=== PATIENT | female | born 1965 | race Caucasian/White ===

== ENCOUNTER 2024-07-17 21:09 | Inpatient (IN) | payer OTHER, SELFPAY ==
[2024-07-17] VITALS (7 sets, daily range): BP systolic 138–181; BP diastolic 66–143; BMI 54.8; BMI 56.4
--- NOTE | 2024-07-17 14:04 | ED.GENMED ---
Addendum entered and electronically signed by Petey Case MD 07/17/24 19:57:
Patient doing well from an allergic reaction standpoint mostly complaining of leg pain at this time we will carefully give a dose of Dilaudid which she has tolerated well in the past
Addendum entered and electronically signed by Petey Case MD 07/17/24 19:42:
During patient's Zosyn patient started feeling a throat tightness and a scratchiness in her throat. Became somewhat agitated. Vital signs remained stable. No new rash. However was treated like an allergic reaction. Was given a racemic epi
inhaled. Benadryl and Pepcid. Patient states she has significant allergic issues with steroids and will be held at this time. Also would like to avoid IM epi given patient's complicated history. I remained in the room throughout this initial
event and she clearly improved clinically.
Original Note:
ED Provider Triage
<Evan Parker PA-C - Last Filed: 07/17/24 14:09>
-
Patient seen by provider in Triage?: Seen in Triage
Attestation: A medical screening examination has been initiated by a qualified medical provider. Based on the assessment performed at this time, it has been determined that an emergent medical condition may exist and the patient has been informed
that further medical evaluation and possible additional diagnostic testing may be needed.
HPI: 58-year-old female presenting to the emergency department for evaluation of right lower extremity edema and a wound that has been present for about 3 to 4 weeks. Gradually worsening. Has not sought any other medical care. Over the last few
days patient also notes that she now has a erythematous rash on both hands and left lower extremity. No pain associated with this. Denies any history of similar. Does note she takes torsemide for edema but did not take this today knowing she was
coming to the ER. Labs and ultrasound ordered.
GENERAL: Alert , in no apparent distress
EYE: No visual abnormalities.
NECK: Trachea midline
ENT: No visible abnormalities.
LUNGS: No acute respiratory distress
NEUROLOGICAL: Alert and oriented
SKIN: Skin intact. No visible changes.
MUSCULOSKELETAL: Moving extremities normally
PSYCH: Normal and appropriate interaction.
This is a medical evaluation conducted in person to initiate diagnostic evaluation and provide initial therapeutics. Please see further documentation by the treating clinician.
History of Present Illness
<Evan Parker PA-C - Last Filed: 07/17/24 14:09>
General
Chief Complaint: Skin Problem
Time Seen by Provider: 07/17/24 18:31
<Petey Case MD - Last Filed: 07/17/24 19:10>
General
Source: patient and family
Exam Limitations: none
History of Present Illness
History of Present Illness:
58-year-old female presents with a cellulitis drainage malodorous in nature pain to the right lower extremity. Progressive over weeks. No fever. Has had ongoing swelling to this right leg. However it is more swollen now than typically
Past History
<Petey Case MD - Last Filed: 07/17/24 19:10>
Past History
ED Past Surgical History: Cholecystectomy, Gynecological and Orthopedic
Review of Systems
<Petey Case MD - Last Filed: 07/17/24 19:10>
Review of Systems
All Other Systems: Not applicable
Constitutional: Denies fever
Phy Exam
<Petey Case MD - Last Filed: 07/17/24 19:10>
Physical Exam
Physical Exam:
GENERAL: Alert and oriented in no apparent distress
EYE: Orbits normal.
NECK: Supple
CARDIAC: Regular rate and rhythm without any obvious murmurs.
LUNGS: Clear breath sounds,normal
ABDOMEN: Soft, without focal tenderness or distention. Elevated BMI
NEUROLOGICAL: Alert and oriented , grossly non-focal
SKIN: Warm and dry, discrete macular papular rash mostly upper extremities but some to the anterior lower extremities
MUSCULOSKELETAL: Significant edema swelling with a large superficial draining malodorous wound to the right lower extremity. Surrounding erythema
PSYCH: Normal and appropriate interaction.
Course
<Evan Parker PA-C - Last Filed: 07/17/24 14:09>
Orders/Labs/Results
Orders:
Orders
07/17/24 14:06
Periph Venous Lwr Ext Rt US [US Periph Venous LOWER Ext RT] Urgent
Comment:
Reason For Exam: edema, wounds
07/17/24 14:29
Complete Blood Count/With Diff Urgent
Comprehensive Metabolic Panel Urgent
Lactic Acid Q4H
Comment: CANCEL 2nd LACTIC ACID IF 1st LACTIC ACID IS LESS THAN 2
NT-proBNP Urgent
07/17/24 18:46
IV Insert/Care/Rem.- Treatment PRN
Piperacillin/Tazo 4.5 Gram [Zosyn] 4.5 gram in 100 ml IV NOW
Vancomycin [Vancocin] 2,000 mg 0.9% Sodium Chloride 500 ml [Nss] 500 ml IV NOW
Abnormal Lab Results
07/17/24
14:29
WBC 12.4 H 10^3/uL
(4.8-10.8)
MCV 78.2 L fL
(81.0-99.0)
MCH 23.3 L pg
(27.0-31.0)
MCHC 29.9 L g/dL
(33.0-37.0)
RDW 17.2 H %
(11.5-14.5)
Abs Immat Gran (auto) 0.1 H 10^3/uL
(0-0.05)
Absolute Neuts (auto) 9.4 H 10^3/uL
(1.4-6.5)
Absolute Monos (auto) 0.7 H 10^3/uL
(0.1-0.6)
Neutrophils % 75.7 H %
(42.2-75.2)
Lymphocytes % 14.5 L %
(20.5-51.1)
Chloride 96 L mmol/L
(98-107)
Carbon Dioxide 33 H mmol/L
(22-30)
BUN 19 H mg/dl
(7-17)
Glucose 124 H mg/dl
(70-99)
Alkaline Phosphatase 132 H U/L
(38-126)
07/17/24 14:29
07/17/24 14:29
Vital Signs
Initial and Last Documented VS:
Initial Vital Signs
Temp Pulse Resp BP Pulse Ox
97.8 F 94 16 181/101 98
07/17/24 14:03 07/17/24 14:03 07/17/24 14:03 07/17/24 14:03 07/17/24 14:03
Last Documented Vital Signs
Temp Pulse Resp BP Pulse Ox
97.8 F 94 16 181/101 98
07/17/24 14:03 07/17/24 14:03 07/17/24 14:03 07/17/24 14:03 07/17/24 14:03
<Petey Case MD - Last Filed: 07/17/24 19:10>
Orders/Labs/Results
Orders:
Orders
07/17/24 14:06
Periph Venous Lwr Ext Rt US [US Periph Venous LOWER Ext RT] Urgent
Comment:
Reason For Exam: edema, wounds
07/17/24 14:29
Complete Blood Count/With Diff Urgent
Comprehensive Metabolic Panel Urgent
Lactic Acid Q4H
Comment: CANCEL 2nd LACTIC ACID IF 1st LACTIC ACID IS LESS THAN 2
NT-proBNP Urgent
07/17/24 18:46
IV Insert/Care/Rem.- Treatment PRN
Piperacillin/Tazo 4.5 Gram [Zosyn] 4.5 gram in 100 ml IV NOW
Vancomycin [Vancocin] 2,000 mg 0.9% Sodium Chloride 500 ml [Nss] 500 ml IV NOW
Abnormal Lab Results
07/17/24
14:29
WBC 12.4 H 10^3/uL
(4.8-10.8)
MCV 78.2 L fL
(81.0-99.0)
MCH 23.3 L pg
(27.0-31.0)
MCHC 29.9 L g/dL
(33.0-37.0)
RDW 17.2 H %
(11.5-14.5)
Abs Immat Gran (auto) 0.1 H 10^3/uL
(0-0.05)
Absolute Neuts (auto) 9.4 H 10^3/uL
(1.4-6.5)
Absolute Monos (auto) 0.7 H 10^3/uL
(0.1-0.6)
Neutrophils % 75.7 H %
(42.2-75.2)
Lymphocytes % 14.5 L %
(20.5-51.1)
Chloride 96 L mmol/L
(98-107)
Carbon Dioxide 33 H mmol/L
(22-30)
BUN 19 H mg/dl
(7-17)
Glucose 124 H mg/dl
(70-99)
Alkaline Phosphatase 132 H U/L
(38-126)
07/17/24 14:29
07/17/24 14:29
Vital Signs
Initial and Last Documented VS:
Initial Vital Signs
Temp Pulse Resp BP Pulse Ox
97.8 F 94 16 181/101 98
07/17/24 14:03 07/17/24 14:03 07/17/24 14:03 07/17/24 14:03 07/17/24 14:03
Last Documented Vital Signs
Temp Pulse Resp BP Pulse Ox
97.8 F 94 16 181/101 98
07/17/24 14:03 07/17/24 14:03 07/17/24 14:03 07/17/24 14:03 07/17/24 14:03
<Petey Case MD - Last Filed: 07/17/24 19:10>
MDM/Problems Addressed
Differential Diagnosis Includes:
Patient with a significant cellulitis with drainage malodorous to the right lower extremity. Warrants IV antibiotics. In addition she has a secondary maculopapular rash most to the upper extremities but some in the lower extremities. Unknown
cause at this time
<Petey Case MD - Last Filed: 07/17/24 19:10>
*Radiology
Radiology exam reviewed: radiology read reviewed (Negative ultrasound)
*Pulse Oximetry
Patient hypoxic: no
*Critical Care Note
Total Time (30-74mins, 75-104mins- exclusive of procedures): Not Applicable
ED Attending Note
<Evan Parker PA-C - Last Filed: 07/17/24 14:09>
-
Portions of this chart may have been created with voice recognition software.� Occasional wrong word or��sound alike� substitutions may have occurred due to the inherent limitations of voice recognition software.
Discharge Plan
Interventions
Interventions:
*Risk Screen - Suicide Last Done: 07/17/24 14:03
*General Assessment Last Done: 07/17/24 14:03
*Neglect/Abuse Screening Last Done: 07/17/24 14:03
ED- Fall Risk Assessment Last Done: 07/17/24 18:54
*ED COVID-19 Vaccine History Last Done: 07/17/24 18:54
ED-Skin Assessment Last Done: 07/17/24 18:54
Discharge Date and Time
Print Language: [place]
[2024-07-17 14:38] LABS: % Basophils 0.4 % (0-2); % Eosinophils 3.3 % (0-6); % Immature Granulocytes 0.4 % (0-0.5); % Lymphocytes 14.5 % (20.5-51.1); % Monocytes 5.7 % (1.7-9.3); % Neutrophils 75.7 % (42.2-75.2); Absolute Basophils 0.1 10^3/uL (0-0.2); Absolute Eosinophils 0.4 10^3/uL (0-0.7); Absolute Immature Granulocytes 0.1 10^3/uL (0-0.05); Absolute Lymphocytes 1.8 10^3/uL (1.2-3.4); Absolute Monocytes 0.7 10^3/uL (0.1-0.6); Absolute Neutrophils 9.4 10^3/uL (1.4-6.5); Hematocrit 41.2 % (37.0-47.0); Hemoglobin 12.3 g/dL (12.0-16.0); Mean Corp Hgb Conc. 29.9 g/dL (33.0-37.0); Mean Corpuscular Hgb 23.3 pg (27.0-31.0); Mean Corpuscular Volume 78.2 fL (81.0-99.0); Mean Platelet Volume 8.9 fL (7.4-10.4); Nucleated Red Blood Cells % 0.2 %; Platelet Count 310 10^3/uL (130-400); Red Blood Cell Count 5.27 10^6/uL (4.20-5.40); Red Cell Dist. Width 17.2 % (11.5-14.5); White Blood Cell Count 12.4 10^3/uL (4.8-10.8)
[2024-07-17 14:56] LABS: ALT (SGPT) 26 U/L (0-35); AST (SGOT) 25 U/L (14-36); Alkaline Phosphatase 132 U/L (38-126); Blood Urea Nitrogen 19 mg/dl (7-17); Calcium 9.6 mg/dl (8.4-10.2); Carbon Dioxide 33 mmol/L (22-30); Chloride 96 mmol/L (98-107); Glucose 124 mg/dl (70-99); Potassium 4.3 mmol/L (3.5-5.1); Sodium 141 mmol/L (135-145); Total Bilirubin 0.4 mg/dl (0.2-1.3); Total Protein 7.7 g/dl (6.3-8.2); eGFR > 60.00
[2024-07-17 14:57] LABS: Lactic Acid 1.5 mmol/L (0.7-2.0)
[2024-07-17 15:04] LABS: NT-proBNP 44.9 pg/ml
[2024-07-17] MEDS: ZOSYN 100 IV (19:07)
[2024-07-17] MEDS: BENADRYL 50 MG IV (19:26)
[2024-07-17] MEDS: VAPONEFRIN NEBS 0.5 ML INH (19:26)
--- NOTE | 2024-07-17 19:29 | EDRN ---
At approx. 1910 this RN was called into room 9. The patients daughter stated 'I think my Mother is having an allergic reaction to the antibiotic.' This RN disconnected the antibiotic and called for Dr. Case to the bedside. The patient complains of
throat tightness and that her voice is now hoarse. Verbal orders from Dr. Case to give Benadryl 50mg IV, pepcid 40mg IV, decadron 8mg IV and racemic epi. via neb. Dr. Case stayed at the stretcher side with this RN. The patient informed Dr. Case
and this RN that she is allergic to steriods but she is not sure what the name of the medication was. At 20:25 The patient stated 'I am starting to feel better.' Verbal order from Dr. Case to hold decadron. Primary RN, Lesley, was notified that
the patient was having an allergic reaction. The patient continues to state 'I am feeling a little better.'
--- NOTE | 2024-07-17 20:18 | HPS.HSE ---
Family Physician
-
Family Physician: * NONE
Chief Complaint
-
Right Calf Wound
History of Present Illness
Patient is a 58 y/o female who presents with worsening right calf wound. Patient developed a posterior right calf wound about three weeks ago which has gotten progressive worse. She notes the wound is now foul smelling, and she has been
experiencing increasing pain the leg. She has been using over the counter wound products without improvement. She reports about 3 days ago she developed a rash on her bilateral hands and forearms. She denies any recorded fevers.
Medical History
Past Medical History
Past Medical History: Reports Other
Additional Past Medical History:
Chronic Lower Extremity Edema
Morbid Obesity
Asthma
Past Surgical History: Reports Other
Additional Past Surgical History:
Cervical Fusion
Lumbar Discectomy
Breast Reduction
Cholecystectomy
Social History
Tobacco: Former Smoker (Quit in 2005)
Family History
Family History: Not pertinent
Allergies / Home Medications
Allergies reflects when Allergies were last updated in [employer].
Home Medications with original date entered in [employer]
Allergy/Medication List:
Allergies
Allergy/AdvReac Type Severity Reaction Status Date / Time
piperacillin [From Zosyn] Allergy Severe Throat Verified 07/17/24 20:48
Tightness
tazobactam [From Zosyn] Allergy Severe Throat Verified 07/17/24 20:48
Tightness
levofloxacin [From Levaquin] Allergy Intermediate Nausea / Verified 07/17/24 14:02
Vomiting
tetanus toxoid, adsorbed Allergy Unknown Verified 07/17/24 19:32
Home Medications
fexofenadine 60 mg-pseudoephedrine ER 120 mg tablet,ext.release,12 hr ([place]-D 12 Hour) 1 tab PO Q12H PRN allergies 07/17/24
torsemide 20 mg tablet 20 mg PO DAILY 07/17/24
Review of Systems
-
A 12 point ROS was completed and negative except as noted: Yes
Constitutional: Denies Fever
Respiratory: Denies Cough or Trouble Breathing
Cardiac: Denies Chest Pain or Palpitations
Abdomen/GI: Reports Nausea
Physical Exam
Vital Signs
Vital Signs
Temp Pulse Resp BP Pulse Ox
97.8 F 99 28 157/66 94
07/17/24 14:03 07/17/24 19:10 07/17/24 19:10 07/17/24 19:10 07/17/24 19:10
Physical Exam
General: Comfortable and Pain
HEENT: Anicteric and Moist mucous membranes
Respiratory: Clear and Non Labored Respirations
Cardiac: S1/S2 and Regular Rhythm
GI: Soft, Non Tender and Other (Protuberant)
Rectal: Deferred by Provider
Musculoskeletal: No Clubbing, No Cyanosis and Edema, Right Lower Extremity
Skin: Warm, Dry, Rash (Petechial non-blanchable rash bilateral hands and forearms) and Other (Large maloderous wound across posterior right calf with surrounding erythema; Several small wounds on the toe; Small wound notes on left ankle which do not
appear appear infected)
Neuro: Awake, Alert, Oriented and Nonfocal/grossly intact
Psych: Calm
Laboratory Results
-
07/17/24 14:29
07/17/24 14:29
Laboratory Results
Lactic Acid 1.5 mmol/L (0.7-2.0) 07/17/24 14:29
Lactic Acid Cancelled 07/17/24 14:29
Total Bilirubin 0.4 mg/dl (0.2-1.3) 07/17/24 14:29
AST 25 U/L (14-36) 07/17/24 14:29
ALT 26 U/L (0-35) 07/17/24 14:29
Alkaline Phosphatase 132 U/L (38-126) H 07/17/24 14:29
Data Reviewed
-
Ultrasound: Report Reviewed by me
Lab Data: Labs Reviewed by me
Impression/Plan
-
Sepsis secondary to Infected Right Posterior Calf Wound
-Consult Wound Care
-Consult Infectious Disease
-Check blood cultures
-Continue Vancomycin
Bilateral Upper Extremity Rash, possibly small vessel vasculitis related to infection
-Check ESR and CRP
Chronic Lower Extremity Edema
-Continue Torsemide
Morbid Obestiy due to Excess Calories
-Affects all aspects of care
DVT proph: Lovenox
Code Status: Full Code
[2024-07-17] MEDS: DILAUDID 0.5 MG IV (20:29)
[2024-07-17] MEDS: VANCOCIN 540 MG IV (20:36)
--- NOTE | 2024-07-17 21:16 | W.PN.UPDATE ---
Update Note
Progress Note Update
Patient seen in conjunction with SAMREEN. I agree with the findings on history and physical as well as the assessment and plan.
Patient is a 58-year-old female with past medical history significant for dependent edema and morbid obesity who presents to the emergency department with a pain erythema and exudate of the left lower extremity. She started applying cream to her
ulceration that started a few weeks ago. After applying the cream he appeared to have developed spreading of the redness and tenderness in lower extremity. She also reported having a rash that started about 2 days ago in her upper extremities
bilaterally. She denies fevers or chills. She denies any further medications.
In the emergency department the patient was afebrile hemodynamically stable and in no acute distress. She did have leukocytosis to 12,000. Hemoglobin platelets are within normal limits. Chemistries were essentially within normal limits except for
a bicarb of 33. Ultrasound is negative for lower extremity DVT.
She received Zosyn in the emergency department. She reported prior history of reaction to Augmentin but not allergies. However she developed throat tightness and conjunction with the Zosyn which was discontinued.
Assessment and plan
purulent cellulitis w/o abscess. No history of PAD and no diabetes. The rash is suggestive of systemic response to the local infection.
-Blood cultures
-IV vancomycin for now
-Check CRP
-ID consultation
-Wound care
DVT PPX - lovenox sq
Code status - Full Code
[2024-07-17 21:20] LABS: Erythrocyte Sed Rate 63 mm/hour (0-20)
[2024-07-17] MEDS: DILAUDID 0.25 MG IV (22:50)
--- NOTE | 2024-07-17 23:30 | PTCARENOTE ---
Patient arrived to floor via stretcher accompanied by ED PCT, with assistance patient able to transfer self from stretcher to bed with noted difficulty secondary to pain in legs and back pain. Nursing assessment completed and as documented, see
worklist. IV Vanco infusing via R AC PIV, flushed and patent. Patient with large wound to posterior RLE and above heel, multiple scattered scabs/abrasions on BLLE and feet. Noted x2 large scabs on L lateral foot. Rash noted on BLLE and BLUE, marked
with skin marker. Rash is red/pink, flat and not currently itchy. Patient refused heparin, education provided. PRN dilaudid administered per order, see MAR. Instructed on use of call harrison and within reach, VSS, care ongoing.
[2024-07-18] MEDS: DILAUDID 0.25 MG IV ×2 (01:58→12:26)
[2024-07-18 03:30] VITALS: BP 139/81
[2024-07-18 06:00] VITALS: BMI 56.4
[2024-07-18 07:00] VITALS: BP 123/92
--- NOTE | 2024-07-18 07:48 | PHA.VAN.IN ---
Assessment
- Assessment
Renal Function: Unknown baseline
Renal Function may be Overestimated due to: Obesity. BMI = 56.4
Maximum Temperature: 98.4
Minimum Temperature: 97.8
AUC Dosing Plan
- Dosing Variables
Dosing Weight (kg): 139.8
Dosing CrCl (ml/min): 90
Vd coefficient (L/kg): 0.4
- Empiric Dosing
Initial / Loading Dose: Vanc 2000mg given 07/17 at 2035
Maintenance Regimen: Vanc 1000mg IV Q12H
Estimated AUC (mcg*h/mL): 470
Estimated Peak (mcg*h/mL): 29.17
Estimated Trough (mcg/ml): 12.22
Estimated Half Life (H): 8.7
- Monitoring
No levels ordered at this time: Consider levels after 07/19 1800 dose
Pharmacokinetics Vancomycin I
- -
Patient Age: 58
Patient Sex: Female
Vancomycin Day #: 1
Indication: Skin And Soft Tissue
Requesting Provider: Uli
Pertinent Antimicrobial Allergies:
Zosyn = throat tightness; Levaquin = nausea,vomiting
Height / Weight:
Height 5 ft 2 in
Actual Weight 139.752 kg
IBW in k.1
Adjusted BW in k
Pertinent Past Medical History: Morbid obesity. BMI = 56.4
- Vital Signs / Lab Results
Temp Pulse Resp BP Pulse Ox
98.4 F 109 17 139/81 95
07/18/24 03:30 07/18/24 03:30 07/18/24 03:30 07/18/24 03:30 07/18/24 03:30
Lab Results - Hematology
07/17/24
14:29
WBC 12.4 H
Lab Results - Chemistry
07/17/24
14:29
BUN 19 H
Creatinine 0.9
Albumin 4.0
07/17/24 07/17/24
14 14:29
Lactic Acid 1.5 Cancelled
[2024-07-18] MEDS: DEMADEX 20 MG PO (08:54)
[2024-07-18] MEDS: VANCOCIN 200 IV ×2 (08:55→18:25)
[2024-07-18 09:59] LABS: Hematocrit 38.8 % (37.0-47.0); Hemoglobin 11.6 g/dL (12.0-16.0); Mean Corp Hgb Conc. 29.9 g/dL (33.0-37.0); Mean Corpuscular Hgb 23.9 pg (27.0-31.0); Mean Corpuscular Volume 79.8 fL (81.0-99.0); Mean Platelet Volume 9.3 fL (7.4-10.4); Platelet Count 300 10^3/uL (130-400); Red Blood Cell Count 4.86 10^6/uL (4.20-5.40); Red Cell Dist. Width 16.9 % (11.5-14.5)
[2024-07-18 10:30] LABS: Blood Urea Nitrogen 14 mg/dl (7-17); Calcium 8.8 mg/dl (8.4-10.2); Carbon Dioxide 34 mmol/L (22-30); Chloride 96 mmol/L (98-107); Estimated Creatinine Clearance 101 ml/min; Glucose 125 mg/dl (70-99); Potassium 4.4 mmol/L (3.5-5.1); Sodium 142 mmol/L (135-145); eGFR > 60.00
[2024-07-18 11:00] VITALS: BP 135/73
[2024-07-18 11:39] LABS: Glycohemoglobin (HgbA1c) 6.7 % (4.0-5.6)
--- NOTE | 2024-07-18 13:53 | CON.ID ---
Consultation
-
Date/Time Consultation Requested: July 17, 20243
Date/Time Consultation Performed: July 18, 2024 1400
Requesting Provider: Dr. Noris Luna
Performing Provider: Dr. Angela Hammonds
Reason for Consultation: RLE cellulitis
Chief Complaint / Past History
Chief Complaint
Worsening right calf wounds
History of Present Illness
58-year-old female with class III obesity BMI 56, lymphedema, who presented to the hospital on July 17 due to foul-smelling right calf wounds. She reports she has chronic pruritic skin conditions mostly on bilateral ankles for which she sees
adult education professional. She applies topical steroid cream. She then developed pruritic lesion on her calf for which she was scratching. Eventually a wound developed about 4 weeks ago and progressed down her leg. She also developed black scabs on her toes
which opened and she has a wound on the fifth toe. She noted foul-smelling odor emanating from the wound and therefore she came to the hospital. Wounds are very painful. She also developed a rash on all 4 limbs approximately 3 days ago. The rash
is not pruritic. No new medicines recently. She thinks she may have allergies to flower mites. She had similar rash in the past which spontaneously resolved. No fevers or chills. In ED she was given Zosyn then developed throat tightness. She is
currently on vancomycin. Patient reports she tolerated cephalexin. Report history of MRSA soft tissue abscess in the past.
Past History
Additional Past Medical History:
Asthma
Class III obesity BMI 56
Lymphedema
BLE dermatitis
hx MRSA abscess on face
Cholecystectomy
Breast reduction
Lumber discectomy
Cervical spine fusion
Allergy History:
piperacillin [From Zosyn] Allergy (Severe, Verified 07/17/24 20:48)
Throat Tightness
tazobactam [From Zosyn] Allergy (Severe, Verified 07/17/24 20:48)
Throat Tightness
levofloxacin [From Levaquin] Allergy (Intermediate, Verified 07/17/24 14:02)
Nausea / Vomiting
tetanus toxoid, adsorbed Allergy (Verified 07/17/24 19:32)
Unknown
Medications Reviewed: Yes
Current Antibiotics:
Vancomycin IV
Social History
Tobacco: Former Smoker
Alcohol: None
Drug: None
Living: With Family (son)
Family History
Family History: Not Pertinent
Review of Systems
Review of Systems
General: Negative Fever, Chills or Change in Appetite
HEENT: Negative Sinus Problems, Headache or Pharyngitis
Cardiovascular: Negative Chest Pain or Dyspnea
Respiratory: Negative Dyspnea or Cough
Gasteroenterology: Negative Nausea, Vomiting or Diarrhea
Genital / Urological: Negative Dysuria or Flank Pain
Endocrine: Negative Weakness
Skin / Hair / Nails: Rash
Neurological: Negative Headache or Dizziness
All systems: All other systems were reviewed and were negative
Vital Signs
Temp Pulse Resp BP Pulse Ox
98.9 F 109 16 135/73 91
07/18/24 11:00 07/18/24 11:00 07/18/24 11:00 07/18/24 11:00 07/18/24 11:00
Physical Exam
Physical Exam
Constitutional: No Acute Distress, Comfortable and Obese
Eyes: No Conjunctival Hemorrhage and Sclera Anicteric
Cardiovascular: Regular Rate and S1/S2
Pulmonary: Clear
Gastrointestinal: Soft, Non Tender, Non Distended and Normal Bowel Sounds
Genito-Urinary: Negative CVA Tenderness
Extremities: Edema (RLE>LLE) and Erythema (RLE + erythema.)
Skin: Other (Left ankle + thick lichenified skin with excoriations. Diffuse maculopapular rash on bilateral thighs, and UE. )
Wound: Other (Wounds down posterior right leg calf to ankle, foul smelling odor, yellow fibrinous exudate. 5th toe dark with wound. Second toe + black scab. Also few scabs on right toes. )
Neurological: AO x 3
Lab / Diagnostic Study Results
07/18/24 08:37
07/18/24 08:37
Abs Immat Gran (auto) 0.1 10^3/uL (0-0.05) H 07/17/24 14:29
Absolute Neuts (auto) 9.4 10^3/uL (1.4-6.5) H 07/17/24 14:29
Absolute Lymphs (auto) 1.8 10^3/uL (1.2-3.4) 07/17/24 14:
Absolute Monos (auto) 0.7 10^3/uL (0.1-0.6) H 07/17/24 14:
Absolute Basos (auto) 0.1 10^3/uL (0-0.2) 07/17/24 14:
Immature Gran % 0.4 % (0-0.5) 07/17/24 14:29
Neutrophils % 75.7 % (42.2-75.2) H 07/17/24 14:
Lymphocytes % 14.5 % (20.5-51.1) L 07/17/24 14:
Monocytes % 5.7 % (1.7-9.3) 07/17/24 14:
Eosinophils % 3.3 % (0-6) 07/17/24 14:
Basophils % 0.4 % (0-2) 07/17/24 14:29
ESR 63 mm/hour (0-20) H 07/17/24 14:
Lactic Acid 1.5 mmol/L (0.7-2.0) 07/17/24 14:
Lactic Acid Cancelled 07/17/24 14:
C-Reactive Protein 33.00 mg/L (0.0-10.00) H 07/17/24 14:29
Microbiology Results
Micro:
07/18/24 03:15 MRSA Screen - Pending
Nose
07/17/24 21:03 Blood Culture - Pending
Blood/Venous
07/17/24 21:03 Blood Culture - Pending
Blood/Venous
RLE venous duplex: No evidence of deep venous thrombosis in the right lower extremity as described above.
Assessment / Plan
# Extensive right posterior leg wounds, foul smelling, with cellulitis
# Leukocytosis
- Ordered arterial US studies
- Continue Vancomycin pending MRSA screen
- Add cefepime. Pt tolerated cephalosporins in the past.
- Wound Consult to see on Saturday.
- In the meantime, put in wound care orders.
# Acute BLE and BUE rash
- unclear inciting source. Pt thinks from a flower basket.
- Supportive care.
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
Asthma
Class III obesity BMI 56
Lymphedema
BLE dermatitis
hx MRSA abscess on face
Cholecystectomy
Breast reduction
Lumber discectomy
Cervical spine fusion
[2024-07-18 15:00] VITALS: BP 149/80
--- NOTE | 2024-07-18 15:22 | W.PN.HOSP.TC ---
Today's Communication/Plan
-
AB
ID eval
WC
Assessment / Plan
Assessment / Plan
58 y/o female with cellulitis worsening right calf wound. Patient stated that this started about 3 weeks ago she had skin thickening on the left dorsal foot for which she was given a cream by senior clinical data coordinator she started putting it on the other leg
to. She noticed a blood blister on dorsal toe on the right foot and then again also developed wounds on the back. Patient stated that she has been using a cleansing agent for the wound called dermal wound cleanser which has benzethonium chloride
as active ingredient. Patient stated that she cannot see the back of her calf really well. She also had family issues with her autistic son and also she is take care of her sister at this point therefore did not pay much attention. 2 days ago she
also started having a rash on her arm. No new medicines or any antibiotics. No fevers. She noted foul smell to the wounds.
On examination awake and alert
Multiple petechial hemorrhages on bilateral upper extremities lower extremities I did not see much on the trunk or the torso.
Skin thickening dorsal foot on the left
Wound with foul smell posteriorly starting just above the ankle all the way up on till slightly below the popliteal area. She also has other ulcers and small skin hemorrhages on the dorsal foot. Discharge noted from the leg/ulcers.
# Infected right posterior wound
Blood culture sent
Vancomycin started
ID and wound care consulted
Local wound care
Wound care consult
Adaptic and gauze for now
# Bilateral upper extremity rash
Vasculitis? Contact dermatitis versus reaction to the cleansing agent
Patient stated that she has had a rash like this once in the past and it went away.
Check Vasculitis panel
# Hemoglobin A1c 6.7-patient has diabetes. Diabetic education consult, dietary consult. Accu-Cheks. Pt aware.
# Chronic lower extremity edema-continue torsemide
# History of lumbar discectomies and cervical fusion
# Asthma-NOS stable
# MGUS per chart
# Sleep apnea-CPAP intolerant uses oxygen at night
# Ambulatory dysfunction
# Morbid obesity with a BMI of 56- Affects all aspects of health, need to loose weight. Discussed re weight loss.
# Ex-smoker
# DVT prophylaxis-Lovenox
# Full code
D/W Dietitian
Part of this note was created using voice recognition system. Occasional wrong word or��sound alike� substitutions may have inadvertently occurred due to the inherent limitations of voice recognition software. If noted kindly bring it to my
attention for correction.
Anticipated Discharge: > 48 hours
Subjective/Interval History
-
Date of Service: July 18, 2024
Objective Data
-
Labs:
Laboratory Results
07/18/24
08:37
WBC 13.0 H
Hgb 11.6 L
Hct 38.8
Plt Count 300
Sodium 142
Potassium 4.4
Chloride 96 L
Carbon Dioxide 34 H
BUN 14
Creatinine 0.8
Glucose 125 H
Calcium 8.8
Vital Signs:
Vital Signs
Temp Pulse Resp BP Pulse Ox
98.9 F 109 16 135/73 91
07/18/24 11:00 07/18/24 11:00 07/18/24 11:00 07/18/24 11:00 07/18/24 11:00
I&O
07/17/24 07/18/24 07/19/24
06:59 06:59 06:59
Output Total 600 / 600
Balance -600 / -600
[2024-07-18] MEDS: STERILE WATER FOR INJECTION 10 ML IV (16:32)
[2024-07-18] MEDS: MAXIPIME 1000 MG IV (16:36)
[2024-07-18 17:32] LABS: Glucose - Point of Care 123 mg/dl (70-99)
[2024-07-18 20:17] VITALS: BP 141/72
[2024-07-18] MEDS: DESENEX/MITRAZOL/ZEASORB 1 APPLIC TOPICAL (20:54)
[2024-07-18 21:03] LABS: Glucose - Point of Care 171 mg/dl (70-99)
[2024-07-18 23:48] VITALS: BP 157/90
[2024-07-19] MEDS: STERILE WATER FOR INJECTION 10 ML IV ×4 (01:09→17:41)
[2024-07-19] MEDS: MAXIPIME 1000 MG IV ×4 (01:10→17:41)
[2024-07-19 03:35] VITALS: BP 124/65
[2024-07-19] MEDS: DAKIN'S SOLUTION 0.125% 1/4 STRENGTH 1 ML TOPICAL (05:53)
[2024-07-19] MEDS: VANCOCIN 200 IV ×2 (05:55→18:06)
[2024-07-19 06:42] LABS: ALT (SGPT) 23 U/L (0-35); AST (SGOT) 29 U/L (14-36); Albumin 3.6 g/dl (3.5-5.0); Alkaline Phosphatase 124 U/L (38-126); Blood Urea Nitrogen 14 mg/dl (7-17); Carbon Dioxide 35 mmol/L (22-30); Chloride 93 mmol/L (98-107); Estimated Creatinine Clearance 101 ml/min; Glucose 107 mg/dl (70-99); Potassium 3.7 mmol/L (3.5-5.1); Sodium 139 mmol/L (135-145); Total Bilirubin 0.4 mg/dl (0.2-1.3); eGFR > 60.00
[2024-07-19 07:00] VITALS: BP 130/77
[2024-07-19 08:08] LABS: Glucose - Point of Care 127 mg/dl (70-99)
--- NOTE | 2024-07-19 08:34 | PHA.VAN.FU ---
Vancomycin Assessment / Plan
- Assessment
Renal Function: Stable
In the past 24 hrs, patient has been: Afebrile
Concomitant Antimicrobials: Cefepime
- Dosing Plan
Continue: Vanc 1000mg IV Q12H
- Monitoring Plan
Peak Level: 07/19 at 2030
Trough Level: 07/20 at 0530
- Follow Up
Pharmacy will continue to follow.
Vancomycin Follow UP
- -
Patient Age: 58
Patient Sex: Female
Vancomycin Day #: 2
Indication: Skin And Soft Tissue
Requesting Provider: Uli
Pertinent Antimicrobial Allergies:
Zosyn = throat tightness; Levaquin = nausea,vomiting
Height / Weight:
Height 5 ft 2 in
Actual Weight 139.752 kg
IBW in k.1
Adjusted BW in k
Pertinent Past Medical History: Morbid obesity. BMI = 56.4
- Vital Signs / Lab Results
Temp Pulse Resp BP Pulse Ox
97.9 F 83 16 130/77 96
07/19/24 07:00 07/19/24 07:00 07/19/24 07:00 07/19/24 07:00 07/19/24 07:00
Lab Results - Hematology
07/17/24 07/18/24
14:29 08:37
WBC 12.4 H 13.0 H
Lab Results - Chemistry
07/17/24 07/18/24 07/19/24
14:29 08:37 04:33
BUN 19 H 14 14
Creatinine 0.9 0.8 0.8
Estimated Creat Clear 101 101
Albumin 4.0 3.6
07/17/24 07/17/24
14:29 14:29
Lactic Acid 1.5 Cancelled
Microbiology Results
07/17/24 21:03 Blood Culture - Preliminary
Blood/Venous No Growth in 24 hours- Final report to follow
07/17/24 21:03 Blood Culture - Preliminary
Blood/Venous No Growth in 24 hours- Final report to follow
[2024-07-19] MEDS: DEMADEX 20 MG PO (08:56)
[2024-07-19] MEDS: DESENEX/MITRAZOL/ZEASORB 1 APPLIC TOPICAL ×2 (08:58→20:36)
[2024-07-19] MEDS: DAKIN'S SOLUTION 0.125% 1/4 STRENGTH 473 ML TOPICAL ×2 (08:59→20:36)
[2024-07-19] MEDS: TYLENOL 650 MG PO (09:14)
[2024-07-19 11:00] VITALS: BP 133/62
[2024-07-19 11:52] LABS: Glucose - Point of Care 124 mg/dl (70-99)
[2024-07-19] MEDS: ROXICODONE 5 MG PO ×2 (13:25→20:35)
[2024-07-19] MEDS: MIRALAX 17 GRAMS PO (13:26)
[2024-07-19] MEDS: SENOKOT 17.2 MG PO ×2 (13:26→20:35)
--- NOTE | 2024-07-19 15:04 | W.PN.ID1 ---
Date of Service
Date of Service: July 19, 2024
Today's Communication
Continue Vancomycin, cefepime.
Assessment / Plan
# Extensive right posterior leg surface wounds, foul smelling, with purulent cellulitis
# Leukocytosis
# MRSA nasal screen positive
- arterial US studies ordered
- Continue Vancomycin (d3) and cefepime (d2)
- Wounds no longer foul-smelling.
- Wound Consult to see tomorrow.
- In the meantime, wash wounds with saline, then Dakins, then apply adaptic (in place of current silver alginate), abd pad, wrap with gauze.
# Acute BLE and BUE rash improving
- unclear inciting source.
- Supportive care.
# Conditions SUSTAINABLE LANDSCAPE ARCHITECT
Asthma
Class III obesity BMI 56
Lymphedema
BLE dermatitis
hx MRSA abscess on face
Cholecystectomy
Breast reduction
Lumber discectomy
Cervical spine fusion
Chief Complaint
-: Cellulitis and Other (Leg wounds)
Subjective / Review of Systems
Wound pain during dressing change.
Vital Signs / Physical Exam
Vital Signs
Vital Signs
Temp Pulse Resp BP Pulse Ox
98.1 F 89 18 133/62 96
07/19/24 11:00 07/19/24 11:00 07/19/24 11:00 07/19/24 11:00 07/19/24 14:37
Physical Exam
Constitutional: No Acute Distress
Gastrointestinal: Soft, Non Tender and Non Distended
Extremities: Edema (RLE 2+) and Erythema (RLE juni-wound erythema decreased)
Skin: Rash (Maculopapular rash BUE and thighs decreased.)
Wound: Other (RLE, calf to ankle surface wound no longer malodorous, + moderate yellow-light green tinge drainage on gauze. Bilateral toes and foot with few scattered dry black scabs)
Neurological: AO x 3
Objective Data
Lab Data
Lab Results
07/18/24 08:37
07/19/24 04:33
ESR 63 mm/hour (0-20) H 07/17/24 14:29
Estimated Creat Clear 101 ml/min 07/19/24 04:33
Lactic Acid 1.5 mmol/L (0.7-2.0) 07/17/24 14:29
Lactic Acid Cancelled 07/17/24 14:29
Total Bilirubin 0.4 mg/dl (0.2-1.3) 07/19/24 04:33
AST 29 U/L (14-36) 07/19/24 04:33
ALT 23 U/L (0-35) 07/19/24 04:33
Alkaline Phosphatase 124 U/L (38-126) 07/19/24 04:33
C-Reactive Protein 71.70 mg/L (0.0-10.00) H 07/19/24 04:33
Most recent labs reviewed.
Micro Results:
07/18/24 03:15 MRSA Screen - Final
Nose Staph aureus MRSA
07/17/24 21:03 Blood Culture - Preliminary
Blood/Venous No Growth in 24 hours- Final report to follow
07/17/24 21:03 Blood Culture - Preliminary
Blood/Venous No Growth in 24 hours- Final report to follow
RLE venous duplex: No evidence of deep venous thrombosis in the right lower extremity as described above.
--- NOTE | 2024-07-19 15:31 | W.PN.HOSP.TC ---
Today's Communication/Plan
-
IV AB
WC
OOB to chair
Assessment / Plan
Assessment / Plan
58 y/o female with cellulitis worsening right calf wound. Patient stated that this started about 3 weeks ago she had skin thickening on the left dorsal foot for which she was given a cream by radiation protection specialist she started putting it on the other leg
to. She noticed a blood blister on dorsal toe on the right foot and then again also developed wounds on the back. Patient stated that she has been using a cleansing agent for the wound called dermal wound cleanser which has benzethonium chloride
as active ingredient. Patient stated that she cannot see the back of her calf really well. She also had family issues with her autistic son and also she is take care of her sister at this point therefore did not pay much attention. 2 days ago she
also started having a rash on her arm. No new medicines or any antibiotics. No fevers. She noted foul smell to the wounds.
On examination awake and alert
Multiple petechial hemorrhages on bilateral upper extremities lower extremities I did not see much on the trunk or the torso. petechiae improving.
Skin thickening dorsal foot on the left
Wound with foul smell posteriorly starting just above the ankle all the way up on till slightly below the popliteal area. She also has other ulcers and small skin hemorrhages on the dorsal foot. Discharge noted from the leg/ulcers.
# Infected right posterior wound
Blood culture sent
Vancomycin started
ID and wound care consulted
Local wound care
Wound care consult
10/10 Siri, Ladarius and Abd pad and Sisi for now
# Bilateral upper extremity rash
Vasculitis? Contact dermatitis versus reaction to the cleansing agent
Patient stated that she has had a rash like this once in the past and it went away.
Check Vasculitis panel
# Hemoglobin A1c 6.7-patient has diabetes. Diabetic education consult, dietary consult. Accu-Cheks. Pt aware.
# Chronic lower extremity edema-continue torsemide
# History of lumbar discectomies and cervical fusion
# Asthma-NOS stable
# MGUS per chart
# Sleep apnea-CPAP intolerant uses oxygen at night
# Ambulatory dysfunction
# Morbid obesity with a BMI of 56- Affects all aspects of health, need to loose weight. Discussed re weight loss.
# Ex-smoker
# DVT prophylaxis-Lovenox
# Full code
D/W RN
Part of this note was created using voice recognition system. Occasional wrong word or��sound alike� substitutions may have inadvertently occurred due to the inherent limitations of voice recognition software. If noted kindly bring it to my
attention for correction.
Anticipated Discharge: > 48 hours
Subjective/Interval History
-
Date of Service: July 19, 2024
Objective Data
-
Labs:
Laboratory Results
07/19/24
04:33
Sodium 139
Potassium 3.7
Chloride 93 L
Carbon Dioxide 35 H
BUN 14
Creatinine 0.8
Glucose 107 H
Calcium 9.0
Total Bilirubin 0.4
AST 29
ALT 23
Alkaline Phosphatase 124
Vital Signs:
Vital Signs
Temp Pulse Resp BP Pulse Ox
98.1 F 89 18 133/62 96
07/19/24 11:00 07/19/24 11:00 07/19/24 11:00 07/19/24 11:00 07/19/24 14:37
I&O
07/18/24 07/19/24 07/20/24
06:59 06:59 06:59
Intake Total 400 / 400
Output Total 600 / 600 1650 / 1650
Balance -600 / -600 -1250 / -1250
--- NOTE | 2024-07-19 16:02 | CM ---
Met patient. She lives in [facility] but her sister lived in [place]. Here sister . SHe has been living at sister's home to prepare house to sell.
She has a son with autism who is now with his sister in her home in [place], [place].
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 She has no DME, no vna no snf history.
She would like SANDRO EVANS RN at discharge for wound care.
She will stay in [place] for now.
PLAN home with CRISTINA JO
[2024-07-19 16:55] VITALS: BP 133/77
--- NOTE | 2024-07-19 17:00 | PTCARENOTE ---
Rec'd pt from 3west est 1700 in her bed. Pt pleasant, AAO. No c/o of pain to r lower leg at this time. Previous assessment unchanged. Will cont to monitor.
[2024-07-19] MEDS: FLUSH (NSS) 2 FLUSH IV (17:44)
[2024-07-19 19:19] VITALS: BP 160/89
[2024-07-19 20:30] LABS: Glucose - Point of Care 117 mg/dl (70-99)
[2024-07-19 21:04] LABS: Vancomycin Peak 20.2 ug/ml (18-26)
--- NOTE | 2024-07-19 23:14 | PTCARENOTE ---
Patient refused Heparin injection; patient stated that prior to admission she had an episode of large amount of blood in toilet after urinating; patient wants to follow up with her OBGYN before taking an anticoagulant.
[2024-07-19 23:45] VITALS: BP 141/74
[2024-07-19 23:46] LABS: Complement C3 178 mg/dl (88-165)
[2024-07-20] MEDS: MAXIPIME 1000 MG IV ×3 (00:22→11:41)
[2024-07-20] MEDS: STERILE WATER FOR INJECTION 10 ML IV ×3 (00:22→11:41)
[2024-07-20] MEDS: ROXICODONE 5 MG PO ×2 (03:38→10:06)
[2024-07-20 03:47] VITALS: BP 126/70
[2024-07-20 05:32] LABS: Urine Albumin Trace (Neg - Trace); Urine Bilirubin Negative (Negative); Urine Character Slightly Cloudy (Clear); Urine Color Yellow; Urine Glucose Negative (Negative); Urine Ketone Negative (Negative); Urine Leukocyte Trace (Negative); Urine Nitrite Negative (Negative); Urine Occult Blood 4+ (Negative); Urine Urobilinogen Negative (Neg - 1+)
[2024-07-20 06:00] VITALS: BMI 55.3
[2024-07-20 06:44] LABS: Urine Amorphous Seen; Urine Mucus Many; Urine Squamous Cell >30 /LPF (Few)
[2024-07-20 06:45] LABS: Urine Bacteria Many (Negative); Urine Red Blood Cell >100 /HPF (0-2)
[2024-07-20 07:15] LABS: Vancomycin Trough 9.6 ug/ml (5-20)
[2024-07-20 07:20] VITALS: BP 132/67
[2024-07-20] MEDS: VANCOCIN 200 IV (07:22)
[2024-07-20 07:25] LABS: % Basophils 0.5 % (0-2); % Eosinophils 5.6 % (0-6); % Immature Granulocytes 0.6 % (0-0.5); % Lymphocytes 11.5 % (20.5-51.1); % Monocytes 5.4 % (1.7-9.3); % Neutrophils 76.4 % (42.2-75.2); Absolute Basophils 0.1 10^3/uL (0-0.2); Absolute Eosinophils 0.7 10^3/uL (0-0.7); Absolute Immature Granulocytes 0.1 10^3/uL (0-0.05); Absolute Lymphocytes 1.4 10^3/uL (1.2-3.4); Absolute Monocytes 0.7 10^3/uL (0.1-0.6); Absolute Neutrophils 9.3 10^3/uL (1.4-6.5); Hematocrit 41.8 % (37.0-47.0); Hemoglobin 12.5 g/dL (12.0-16.0); Mean Corp Hgb Conc. 29.9 g/dL (33.0-37.0); Mean Corpuscular Hgb 23.8 pg (27.0-31.0); Mean Corpuscular Volume 79.6 fL (81.0-99.0); Nucleated Red Blood Cells % 0 %; Red Blood Cell Count 5.25 10^6/uL (4.20-5.40); Red Cell Dist. Width 17.3 % (11.5-14.5); White Blood Cell Count 12.2 10^3/uL (4.8-10.8)
[2024-07-20 07:44] LABS: Glucose - Point of Care 164 mg/dl (70-99)
[2024-07-20] MEDS: DESENEX/MITRAZOL/ZEASORB 1 APPLIC TOPICAL ×2 (07:54→20:47)
[2024-07-20] MEDS: DAKIN'S SOLUTION 0.125% 1/4 STRENGTH 473 ML TOPICAL ×2 (07:54→20:47)
[2024-07-20] MEDS: MIRALAX PO (07:55)
[2024-07-20] MEDS: SENOKOT PO (07:55)
[2024-07-20] MEDS: DEMADEX 20 MG PO (07:55)
[2024-07-20 08:26] LABS: Mean Platelet Volume 10.2 fL (7.4-10.4); Platelet Count 287 10^3/uL (130-400)
--- NOTE | 2024-07-20 08:36 | PHA.VAN.FU ---
Vancomycin Assessment / Plan
- Assessment
Renal Function: Stable
WBC's are: Stable
In the past 24 hrs, patient has been: Afebrile
Concomitant Antimicrobials: cefepime
- Assessment - Therapeutic Drug Monitoring
Extrapolated Cmax (mcg/mL): 22.8
Peak level was drawn: Appropriately (drawn ~1.5H after end of previous infusion)
Extrapolated Cmin (mcg/mL): 9.5
Trough Drawn: Appropriately
Levels were drawn: At steady state (drawn after 3rd maintenance dose; however, may still have accumulation with BMI)
Calculated AUC (mcg*h/mL): 366
Calculated ke: 0.08
Calculated half life (H): 8.7
Calculated Vd (L): 68 (~0.5 L/kg)
Calculated Vanc CL (ml/min): 91
- Dosing Plan
Adjust Regimen to: Vanc 1250mg Q12H
New Regimen Predicts: AUC (458), Peak (29.7), Trough (11.4)
Patient may not fully be at steady state (may be prolonged to reach equilibrium between tissues and serum due to BMI)
- Monitoring Plan
No level(s) ordered at this time: consider levels in next few days
Monitoring Comments: Patient may still have additional accumulation
- Follow Up
Pharmacy will continue to follow.
Vancomycin Follow UP
- -
Patient Age: 58
Patient Sex: Female
Vancomycin Day #: 3
Indication: Skin And Soft Tissue
Requesting Provider: Uli / Dr. Hammonds
Pertinent Antimicrobial Allergies:
piperacillin/tazobactam - throat tightness; tolerated cephalexin
levofloxacin - N/V
Height / Weight:
Height 5 ft 2 in
Actual Weight 137.127 kg
IBW in k.1
Adjusted BW in k
Pertinent Past Medical History: BMI ~55
- Vital Signs / Lab Results
Temp Pulse Resp BP Pulse Ox
98.4 F 87 18 132/67 98
07/20/24 07:20 07/20/24 07:20 07/20/24 07:20 07/20/24 07:20 07/20/24 07:20
Lab Results - Hematology
07/17/24 07/18/24 07/20/24
14:29 08:37 05:56
WBC 12.4 H 13.0 H 12.2 H
Lab Results - Chemistry
07/17/24 07/18/24 07/19/24
14:29 08:37 04:33
BUN 19 H 14 14
Creatinine 0.9 0.8 0.8
Estimated Creat Clear 101 101
Albumin 4.0 3.6
07/20/24
05:56
BUN Cancelled
Creatinine Cancelled
Estimated Creat Clear Cancelled
Albumin
07/17/24 07/17/24
14:29 14:29
Lactic Acid 1.5 Cancelled
Lab Results - Urine
07/20/24
03:36
Urine Nitrite Negative
Ur Leukocyte Esterase Trace A
Urine WBC
Ur Squamous Epith Cells >30
Urine Bacteria Many A
Microbiology Results
07/17/24 21:03 Blood Culture - Preliminary
Blood/Venous No Growth in 48 hours- Final report to follow
07/17/24 21:03 Blood Culture - Preliminary
Blood/Venous No Growth in 48 hours- Final report to follow
07/18/24 03:15 MRSA Screen - Final
Nose Staph aureus MRSA
Therapeutic Drug Monitoring
Vancomycin Peak 20.2 ug/ml (18-26) 07/19/24 20:38
Vancomycin Trough 9.6 ug/ml (5-20) 07/20/24 05:56
--- NOTE | 2024-07-20 08:59 | W.PN.UPDATE ---
Update Note
Progress Note Update
I saw and evaluated the patient. I reviewed the resident�s note and agree with findings and plan as documented in the resident�s note.
No new complaints. Denies chest pain or shortness of breath.
Gen: NAD, AAOx3.
Eyes: EOMI, PERRLA, no scleral icterus.
Neck: supple.
CV: Tachycardic, regular rhythm, +S1/S2, no m/r/g.
Resp: CTAB, no rales, wheezes, or rhonchi.
Abd: +BS, soft, NT, ND
Skin: Macular rash most notable on the dorsum of the hands. C/D/I dressing RLE
Neuro: CN 2-12 intact, non-focal.
Psych: Normal mood and affect.
Infected RLE wound:
-cont Cefepime as per ID
-BCx NGTD
-wound care
Macular rash:
-DDx includes vasculitis, contact dermatitis
-vasculitis labs pending (HARVINDER, ANCA, RF, anti-CCP)
-c/s rheum
Hematuria:
-As per patient this has been going on 6 months
-If the patient has vasculitis this could be the cause
-Hb normal
Other problems:
Morbid obesity due to excess calories
Chronic lower extremity edema: continue torsemide
h/o lumbar discectomies and cervical fusion
Asthma, not in acute exac
MGUS per chart
JAMES: CPAP intolerant, uses oxygen at night
Ambulatory dysfunction
Total time spent on today's encounter was 50 minutes which included time spent in counseling the patient/family regarding diagnosis and treatment plan as listed above, goals of care, and symptom management. Case was discussed with nursing staff,
specialists, and care coordinators/case management. All labs and imaging personally reviewed by me. Remainder the time spent in detailed review of previous records, lab data, imaging, and other medical provider documentation.
[2024-07-20 10:12] LABS: Blood Urea Nitrogen 17 mg/dl (7-17); Calcium 8.9 mg/dl (8.4-10.2); Carbon Dioxide 36 mmol/L (22-30); Chloride 90 mmol/L (98-107); Estimated Creatinine Clearance 100 ml/min; Glucose 116 mg/dl (70-99); Sodium 137 mmol/L (135-145); eGFR > 60.00
--- NOTE | 2024-07-20 10:43 | W.PN.HOSP.TC ---
Today's Communication/Plan
-
Rheumatology consult
arterial doppler ultrasound of right leg
follow vasculitis pannel
Assessment / Plan
Assessment / Plan
IMPRESSION
58 y/o female with cellulitis of right calf wound.
Multiple petechial hemorrhages on bilateral upper extremities lower extremities
Skin thickening dorsal foot on the left
ASSESSMENT AND PLAN
# Infected right posterior wound
NOSE SWAB POSITIVE FOR MRSA
ID and wound care consulted
- arterial US studies ordered
- Continue Vancomycin (d3) and cefepime (d2)
Local wound care
10/10 Dakin, Adaptic and Abd pad and Sisi for now
# Bilateral upper extremity rash
Vasculitis? Contact dermatitis versus reaction to the cleansing agent
Patient stated that she has had a rash like this once in the past and it went away.
checked Vasculitis panel-positive for increased c3 and c4
has hematuria, eczema, chronic venous insufficiency
rheumatology consult
# Hemoglobin A1c 6.7-patient has diabetes. Diabetic education consult, dietary consult. Accu-Cheks. Pt aware.
# Chronic lower extremity edema-continue torsemide
# History of lumbar discectomies and cervical fusion
# Asthma-NOS stable
# MGUS per chart
# Sleep apnea-CPAP intolerant uses oxygen at night
# Ambulatory dysfunction
# Morbid obesity with a BMI of 56- Affects all aspects of health, need to loose weight. Discussed re weight loss.
Ex-smoker
# DVT prophylaxis-Lovenox
# Full code
Anticipated Discharge: 24 - 48 hours
Subjective/Interval History
-
Date of Service: July 20, 2024
no active issues
Objective Data
-
Labs:
Laboratory Results
07/20/24 07/20/24
05:56 09:18
WBC 12.2 H
Hgb 12.5
Hct 41.8
Plt Count 287
Sodium Cancelled 137
Potassium Cancelled 4.0
Chloride Cancelled 90 L
Carbon Dioxide Cancelled 36 H
BUN Cancelled 17
Creatinine Cancelled 0.8
Glucose Cancelled 116 H
Calcium Cancelled 8.9
Vital Signs:
Vital Signs
Temp Pulse Resp BP Pulse Ox
98.4 F 87 18 132/67 98
07/20/24 07:20 07/20/24 07:20 07/20/24 07:20 07/20/24 07:20 07/20/24 07:20
I&O
07/19/24 07/20/24 07/21/24
06:59 06:59 06:59
Intake Total 400 / 400 480 / 480
Output Total 1650 / 1650 500 / 500
Balance -1250 / -1250 -20 / -20
Review of Systems
-
All other systems: Reviewed and negative
Physical Exam
-
General: Well Developed, Well Nourished, No Apparent Distress, Comfortable and Obese
HEENT: Normocephalic and Atraumatic
Respiratory: Clear to Auscultation
Cardiac: Regular Rhythm and S1/S2
GI: Soft, Nontender, Nondistended and Normal Bowel Sounds
Skin: Warm and Rash (petechiae on hands bilaterally, scabed rash on both feet, redness of right leg)
Neuro: Awake, Alert and Oriented
Hematologic / Lymphatic: No Lymphadenopathy
Psych: Calm
[2024-07-20 11:05] VITALS: BP 124/65
--- NOTE | 2024-07-20 11:14 | WOUNDNOTE ---
R CALF (POSTERIOR)(with photo flash)
--- NOTE | 2024-07-20 11:17 | WOUNDNOTE ---
FEET (R MEDIAL, L DORSAL)
--- NOTE | 2024-07-20 11:17 | WOUNDNOTE ---
[facility] RN note: Patient admitted with sepsis, RLE cellulitis. Patient living temporality in her sister's house with her autistic son. Her home is in [place]. She last saw her regulatory associate in December (Dr. Sánchez Kang).
See H&P for complete history.
PMH: asthma, obesity, venous stasis RLE, cervical fusion, lumbar discectomies, breast reduction, cholecystectomy, former smoker, chronic LE edema, sleep apnea (CPAP), ambulation dysfunction.
Wound Location and type/assessment: Patient admitted with: R posterior calf deep dermal suspect venous stasis ulcer with diffuse erythema RLE (improved as per Dr. Hammonds). +2 RLE edema. +R pedal pulse heard via portable Doppler. L ankle eczema
appearing skin. Dry scabs on R foot. Rash improved on legs and arms. Mild MASD sacral crease. RLE venous Doppler negative for DVT.
Appetite: good.
Pressure redistribution devices in place: Centrella Max air bed. She can turn self in bed.
Plan: Patient seen with Dr. Hammonds. Current wound care appropriate. Dr. Hammonds approved R knee high Fabian with light compression as tolerated and moisture cream to arms/leg dry rash like skin as tolerated. Heels off bed with pillow. Air chair cushion
given. Will update CHAYA Campos. Instructed patient to follow up at [facility].
Care plan to be updated and will follow as needed.
Note to case management requested for discharge: VN to assist with wound care.
Recommend follow up at wound care center upon discharge.
[2024-07-20 11:22] LABS: Glucose - Point of Care 126 mg/dl (70-99)
[2024-07-20] MEDS: DILAUDID 0.25 MG IV ×2 (11:40→20:45)
[2024-07-20 11:48] LABS: Rheumatoid Agglutinin Less Than 10 IU (<10 IU)
--- NOTE | 2024-07-20 12:18 | W.PN.UPDATE ---
Update Note
Progress Note Update
Patient has petechial rash,hematuria and elevated c3 and c4
Rheumatology consult appreciated
we spoke with , He advised labs including hep-b, HARVINDER, Hiv,immunoglobulins,urine protein to creatinine ratio,SPEP and a repeat urinalysis
Dr. Ybarra advised outpatient visit once the patient gets treated for cellulitis
--- NOTE | 2024-07-20 14:23 | W.PN.ID1 ---
Date of Service
Date of Service: July 20, 2024
Today's Communication
Continue Vanco.
DC cefepime
Assessment / Plan
# Extensive right posterior leg surface wounds, foul smelling, with purulent cellulitis
# Leukocytosis improving
# MRSA nasal screen positive
- wound and cellulitis improving
- arterial US studies ordered
- Continue Vancomycin (d4)
- dc cefepime (d3)
- Appreciate Wound Care recs.
# Acute BLE and BUE rash improving
- unclear inciting source.
- Supportive care.
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
Asthma
Class III obesity BMI 56
Lymphedema
BLE dermatitis
hx MRSA abscess on face
Cholecystectomy
Breast reduction
Lumber discectomy
Cervical spine fusion
Chief Complaint
-: Cellulitis and Other (Leg wounds)
Subjective / Review of Systems
Rash fading.
Right leg dressing too tight last night - taken off.
Vital Signs / Physical Exam
Vital Signs
Vital Signs
Temp Pulse Resp BP Pulse Ox
99.1 F 100 18 124/65 90
07/20/24 11:05 07/20/24 11:05 07/20/24 11:05 07/20/24 11:05 07/20/24 11:05
Physical Exam
Constitutional: No Acute Distress
Extremities: Edema (RLE 3+) and Erythema (RLE erythema decreased)
Skin: Rash (Maculopapular rash now localized to dorsum of hands)
Wound: Other (Right posterior leg with surface wound, light yellow fibrin, juni-wound erythema decreasing. Several black scabs on distal foot. )
Neurological: AO x 3
Objective Data
Lab Data
Lab Results
07/20/24 05:56
07/20/24 09:18
ESR 63 mm/hour (0-20) H 07/17/24 14:29
Estimated Creat Clear 100 ml/min 07/20/24 09:18
Lactic Acid 1.5 mmol/L (0.7-2.0) 07/17/24 14:29
Lactic Acid Cancelled 07/17/24 14:29
Total Bilirubin 0.4 mg/dl (0.2-1.3) 07/19/24 04:33
AST 29 U/L (14-36) 07/19/24 04:33
ALT 23 U/L (0-35) 07/19/24 04:33
Alkaline Phosphatase 124 U/L (38-126) 07/19/24 04:33
C-Reactive Protein 71.70 mg/L (0.0-10.00) H 07/19/24 04:33
Most recent labs reviewed.
Micro Results:
07/17/24 21:03 Blood Culture - Preliminary
Blood/Venous No Growth in 48 hours- Final report to follow
07/17/24 21:03 Blood Culture - Preliminary
Blood/Venous No Growth in 48 hours- Final report to follow
07/18/24 03:15 MRSA Screen - Final
Nose Staph aureus MRSA
RLE venous duplex: No evidence of deep venous thrombosis in the right lower extremity as described above.
Care Review
Plan reviewed with: Nurse (Rhoda Pierre)
--- NOTE | 2024-07-20 14:48 | PN.DE ---
Diabetes Education
- -
07/20/2024: Diabetes Education Consult
58 year old female admitted with RLE Cellulitis and infected posterior wound. Met with pt at bedside for glucose monitor instructions. Pt is newly Dx T2DM with current A1C of 6.7%. Provided with Contour Next Gen glucose meter, instructions with good
return demonstration, result 159 mg/dl 1hr after lunch were noted. Discussed testing pattern and expected results and information marked in the take home booklet. Discussed importance of intense life style modification and encouraged pt to enroll in
outpatient Diabetes Education. Pt reports she is not from this area but will look into Diabetes classes when she returns home in [place].
Pt will need RX for test strips and lancets for the Contour Next Gen glucose meter testing once/day at discharge. All sent to pt's pharmacy
[2024-07-20 15:25] VITALS: BP 124/69
[2024-07-20 15:26] LABS: Hepatitis B Surface Antigen Negative (Negative)
--- NOTE | 2024-07-20 15:29 | CM ---
Met with patient at bedside.
Discussed [facility] - referral placed in [facility]-liaison notified.
PCP: Haris Gresham [phone]
Patient will be staying in [place] at her sister's home (recently passed)
Discussed recommendation by [facility] regarding [facility].
States would be able to uber if necessary.
PLAN: sister's home with visiting nurse.
[2024-07-20 15:34] LABS: HIV Combo Negative (Negative)
--- NOTE | 2024-07-20 16:11 | VNURNOTE ---
[facility] liaison met with patient at bedside. patient screened, she admits she has not seen PCP in 2-3 years. She stated she saw Dr Haris Hyatt at [place] in [place]. Explained that patient has to be current with PCP in order for [facility] to provide
services. Liaison called PCP and spoke with Bella at PCP's. Inquired if would be willing to sign VN /wound care orders. Waiting for call back. CM and [facility] Intake aware.
[2024-07-20 16:33] LABS: Glucose - Point of Care 131 mg/dl (70-99)
[2024-07-20 16:50] LABS: Urine Albumin Trace (Neg - Trace); Urine Bilirubin Negative (Negative); Urine Character Slightly Cloudy (Clear); Urine Color Yellow; Urine Glucose Negative (Negative); Urine Ketone Negative (Negative); Urine Leukocyte Negative (Negative); Urine Nitrite Negative (Negative); Urine Occult Blood 4+ (Negative); Urine Specific Gravity 1.015 (<1.030); Urine Urobilinogen Negative (Neg - 1+)
[2024-07-20 17:12] LABS: Protein/creatinine Ratio 0.5; Urine Protein 32 mg/dl
[2024-07-20 17:18] LABS: Urine Squamous Cell >30 /LPF (Few)
[2024-07-20 17:19] LABS: Urine Bacteria Few (Negative); Urine White Cell 0-2 /HPF (0-5)
[2024-07-20] MEDS: VANCOCIN 275 MG IV (17:24)
[2024-07-20 19:52] VITALS: BP 133/77
[2024-07-20] MEDS: SENOKOT 17.2 MG PO (20:44)
[2024-07-20 21:59] LABS: Glucose - Point of Care 130 mg/dl (70-99)
[2024-07-20 22:10] LABS: ANA, IgG Reflex to HEp-2 None Detected (None Detected)
[2024-07-20 23:34] VITALS: BP 146/70
[2024-07-21 01:04] LABS: Myeloperoxidase Antibody 0 AU/mL (0-19); Serine Protease-3, IgG 0 AU/mL (0-19)
[2024-07-21 01:35] LABS: CCP Antibody IgG/IgA 4 Units (0-19)
[2024-07-21 03:40] VITALS: BP 131/57
[2024-07-21 05:36] VITALS: BMI 54.9
[2024-07-21] MEDS: VANCOCIN 275 MG IV (06:10)
[2024-07-21] MEDS: DILAUDID 0.25 MG IV ×2 (06:15→21:17)
--- NOTE | 2024-07-21 07:03 | W.PN.HOSP.TC ---
Addendum entered and electronically signed by Carlin Verdugo MD, Resident 07/21/24 15:45:
Clarification regarding sepsis,
Sepsis POA,due to RLE cellulitis--- likely resolved
Addendum entered and electronically signed by Carlin Verdugo MD, Resident 07/21/24 15:23:
In clarification to my note!
The cellulitis of the right leg is most likely secondary to diabetes and chronic lymphedema
Addendum entered and electronically signed by Asif Remy MD 07/21/24 11:50:
I saw and evaluated the patient. I reviewed the resident�s note and agree with findings and plan as documented in the resident�s note.
Patient states she feels cold (but a fan is blowing on her). No other new complaints.
Gen: NAD, AAOx3.
Eyes: EOMI, PERRLA, no scleral icterus.
Neck: supple.
CV: RRR, +S1/S2, no m/r/g.
Resp: CTAB, no rales, wheezes, or rhonchi.
Abd: +BS, soft, NT, ND
Skin: C/D/I dressing RLE
Neuro: CN 2-12 intact, non-focal.
Psych: Normal mood and affect.
Infected RLE wound:
-was on Cefepime, now transitioned to Doxy through 07/26/24 as per ID
-BCx NGTD
-wound care
Macular rash:
-DDx includes vasculitis, contact dermatitis
-vasculitis labs in process. So far RF, anti-CCP, HARVINDER, ANCAs, HIV NEG, rest pending
-follow up with rheum after d/c
Hematuria:
-As per patient this has been going on 6 months
-If the patient has vasculitis this could be the cause
-Hb normal
Other problems:
Morbid obesity due to excess calories
Chronic lower extremity edema: continue torsemide
h/o lumbar discectomies and cervical fusion
Asthma, not in acute exac
MGUS per chart
JAMES: CPAP intolerant, uses oxygen at night
Ambulatory dysfunction
Medically cleared for discharge. Case management aware.
Original Note:
Today's Communication/Plan
-
Follow with SPEP, immunoglobulins, TB testing
Continue vancomycin
Wound care
WBC count
Assessment / Plan
Assessment / Plan
IMPRESSION
58 y/o female with cellulitis of right calf with yellowish blisters on the posterior surface of the leg
Multiple petechial hemorrhages on bilateral upper extremities
Skin thickening of dorsum of left foot
ASSESSMENT AND PLAN
# Right leg cellulitis/left foot eczema/bilateral venous stasis dermatitis
NOSE SWAB POSITIVE FOR MRSA
ID and wound care consulted
- arterial US studies showed normal blood flow through both femoral arteries, normal ankle-brachial index and normal toe brachial index
-Infectious disease consultation appreciated-continue vancomycin, discontinue cefepime
-Local wound care
1/ Dakin, Adaptic and Abd pad and Kerlix wrap
-Increase in WBC count, follow-up .monitor
# Bilateral upper extremity rash
Vasculitis? Contact dermatitis versus reaction to the cleansing agent
Patient stated that she has had a rash like this once in the past and it went away.
checked Vasculitis panel-positive for increased c3 and c4, rheumatoid factor negative, myeloperoxidase antibody 0, proteinase 3 0, HARVINDER nondetected
Hepatitis B testing negative, HIV negative, urine protein to creatinine ratio 0.5
SPEP pending, immunoglobulin levels pending, TB testing pending
rheumatology consult appreciated-will see the patient in the outdoor once the patient has the cellulitis resolved
#other problems
# Hemoglobin A1c 6.7-patient has diabetes. Diabetic education consult, dietary consult. Accu-Cheks. Pt aware.
# Chronic lower extremity edema-continue torsemide
# History of lumbar discectomies and cervical fusion
# Asthma-NOS stable
# MGUS per chart
# Sleep apnea-CPAP intolerant uses oxygen at night
# Ambulatory dysfunction
# Morbid obesity with a BMI of 56- Affects all aspects of health, need to loose weight. Discussed re weight loss.
Ex-smoker
# DVT prophylaxis-Lovenox
# Full code
Anticipated Discharge: 24 - 48 hours
Subjective/Interval History
-
Date of Service: July 21, 2024
No active issues
Objective Data
-
Labs:
Laboratory Results
07/21/24
06:00
WBC Pending
Hgb Pending
Hct Pending
Plt Count Pending
Sodium Pending
Potassium Pending
Chloride Pending
Carbon Dioxide Pending
BUN Pending
Creatinine Pending
Glucose Pending
Calcium Pending
Vital Signs:
Vital Signs
Temp Pulse Resp BP Pulse Ox
98.0 F 95 22 131/57 92
07/21/24 03:40 07/21/24 03:40 07/21/24 03:40 07/21/24 03:40 07/21/24 03:40
I&O
07/20/24 07/21/24 07/22/24
06:59 06:59 06:59
Intake Total 480 / 480 2790 / 2790
Output Total 500 / 500
Balance -20 / -20 2790 / 2790
Review of Systems
-
All other systems: Reviewed and negative
Physical Exam
-
General: Well Developed, Well Nourished and Morbidly Obese (BMI 56)
HEENT: Normocephalic and Atraumatic
Respiratory: Clear to Auscultation
Cardiac: Regular Rhythm and S1/S2
GI: Soft, Nontender, Nondistended and Normal Bowel Sounds
Genito-urinary: No Costovertebral Tender
Musculoskeletal: Edema, Right Lower Extrem, Edema, Left Lower Extrem and Other (Bilateral lower extremity venous insufficiency, stasis dermatitis, cellulitis of right lower leg with yellow blisters on posterior side of the leg with discharge)
Skin: Warm, Dry and Rash (Petechial rash on dorsum of both hands)
Neuro: Awake, Alert and Oriented
Hematologic / Lymphatic: No Lymphadenopathy
Psych: Calm
[2024-07-21 07:20] VITALS: BP 134/68
[2024-07-21 07:37] LABS: Blood Urea Nitrogen 18 mg/dl (7-17); Calcium 8.8 mg/dl (8.4-10.2); Chloride 87 mmol/L (98-107); Estimated Creatinine Clearance 100 ml/min; Glucose 124 mg/dl (70-99); Potassium 4.1 mmol/L (3.5-5.1); Sodium 139 mmol/L (135-145); eGFR > 60.00
[2024-07-21 07:46] LABS: Carbon Dioxide 35 mmol/L (22-30)
[2024-07-21 07:47] LABS: % Basophils 0.4 % (0-2); % Eosinophils 4.6 % (0-6); % Immature Granulocytes 0.4 % (0-0.5); % Lymphocytes 9.6 % (20.5-51.1); % Monocytes 5.8 % (1.7-9.3); % Neutrophils 79.2 % (42.2-75.2); Absolute Basophils 0.1 10^3/uL (0-0.2); Absolute Eosinophils 0.6 10^3/uL (0-0.7); Absolute Immature Granulocytes 0.1 10^3/uL (0-0.05); Absolute Lymphocytes 1.3 10^3/uL (1.2-3.4); Absolute Monocytes 0.8 10^3/uL (0.1-0.6); Absolute Neutrophils 10.9 10^3/uL (1.4-6.5); Hematocrit 40.9 % (37.0-47.0); Mean Corp Hgb Conc. 29.3 g/dL (33.0-37.0); Mean Corpuscular Hgb 23.6 pg (27.0-31.0); Mean Corpuscular Volume 80.4 fL (81.0-99.0); Mean Platelet Volume 9.3 fL (7.4-10.4); Nucleated Red Blood Cells % 0.1 %; Platelet Count 310 10^3/uL (130-400); Red Blood Cell Count 5.09 10^6/uL (4.20-5.40); Red Cell Dist. Width 16.9 % (11.5-14.5); White Blood Cell Count 13.8 10^3/uL (4.8-10.8)
[2024-07-21 07:59] LABS: Glucose - Point of Care 113 mg/dl (70-99)
--- NOTE | 2024-07-21 08:16 | PHA.VAN.FU ---
Vancomycin Assessment / Plan
- Assessment
Renal Function: Stable
WBC's are: Trending Up
In the past 24 hrs, patient has been: Afebrile
- Dosing Plan
Continue: Vanc 1250mg Q12H (adjusted 07/20)
- Monitoring Plan
No level(s) ordered at this time: consider repeat levels following tomorrow PM dose to assess accumulation
- Follow Up
Pharmacy will continue to follow.
Vancomycin Follow UP
- -
Patient Age: 58
Patient Sex: Female
Vancomycin Day #: 4
Indication: Skin And Soft Tissue
Requesting Provider: Uli / Dr. Hammonds
Pertinent Antimicrobial Allergies:
piperacillin/tazobactam - throat tightness; tolerated cephalexin
levofloxacin - N/V
Height / Weight:
Height 5 ft 2 in
Actual Weight 135.942 kg
IBW in k.1
Adjusted BW in k
Pertinent Past Medical History: BMI ~55
- Vital Signs / Lab Results
Temp Pulse Resp BP Pulse Ox
98.4 F 93 18 134/68 96
07/21/24 07:20 07/21/24 07:20 07/21/24 07:20 07/21/24 07:20 07/21/24 07:20
Lab Results - Hematology
07/18/24 07/20/24 07/21/24
08:37 05:56 07:06
WBC 13.0 H 12.2 H 13.8 H
Lab Results - Chemistry
07/18/24 07/19/24 07/20/24
08:37 04:33 05:56
BUN 14 14 Cancelled
Creatinine 0.8 0.8 Cancelled
Estimated Creat Clear 101 101 Cancelled
Albumin 3.6
07/20/24 07/21/24
09:18 07:06
BUN 17 18 H
Creatinine 0.8 0.8
Estimated Creat Clear 100 100
Albumin
Lab Results - Urine
07/20/24
16:21
Urine Nitrite (Reflex) Negative
Leukocyte Esterase Rfl Negative
Ur Squamous Epith Cells >30
Microbiology Results
07/17/24 21:03 Blood Culture - Preliminary
Blood/Venous No Growth in 72 hours- Final report to follow
07/17/24 21:03 Blood Culture - Preliminary
Blood/Venous No Growth in 72 hours- Final report to follow
07/18/24 03:15 MRSA Screen - Final
Nose Staph aureus MRSA
Therapeutic Drug Monitoring
Vancomycin Peak 20.2 ug/ml (18-26) 07/19/24 20:38
Vancomycin Trough 9.6 ug/ml (5-20) 07/20/24 05:56
[2024-07-21] MEDS: DAKIN'S SOLUTION 0.125% 1/4 STRENGTH 473 ML TOPICAL ×2 (08:21→21:15)
[2024-07-21] MEDS: MIRALAX 17 GRAMS PO (08:24)
[2024-07-21] MEDS: SENOKOT 17.2 MG PO ×2 (08:24→21:00)
[2024-07-21] MEDS: DEMADEX 20 MG PO (08:25)
[2024-07-21] MEDS: DESENEX/MITRAZOL/ZEASORB 1 APPLIC TOPICAL ×2 (08:26→21:14)
--- NOTE | 2024-07-21 08:55 | PN.CDI ---
CDI
- -
CDI:
Physician Documentation Request
Admit Date: 07/17/24 21:09
Dear Doctor Sandrita,
Please review the following and provide your response in the progress notes.
Clinical Indicators:
Pt admitted with RLE cellulitis on Cefepime/ Vancomycin
Documented per H&P, ' Sepsis secondary to Infected Right Posterior Calf Wound..'
On admission WBC 12.4, HR 109, RR 28
Please update the status of sepsis documented in H&P:
Sepsis- Still being monitored /treated
- Systemic manifestations of infection, with 2 or more SIRS criteria which include:
- Fever >100.4 degrees F or hypothermia < 96.8 degrees F
- Leukocytosis - WBC > 12,000 or leukopenia - WBC < 4,000 or > 10% bands
- Tachycardia > 90 beats per minute
- Tachypnea - RR > 20 breaths per minute or PaCO2 , 32mmHg
Source: Merck Manual 2013
Sepsis- Resolved
Sepsis- Ruled out
Other
Use of terms such as suspected, likely, concern for, or probable (associated with a specific diagnosis that is being evaluated, monitored, or treated as if it exists) are acceptable and can be coded in the inpatient setting, when documented at the
time of discharge.
Thank you,
Louann Mccain RN
CDI Specialist
[place] Text
Please use your independent medical judgment in providing your response.
--- NOTE | 2024-07-21 08:58 | PN.CDI ---
CDI
- -
CDI:
Physician Documentation Request
Admit Date: 07/17/24 21:09
Dear Doctor Sandrita,
Please review the following and provide your response in the progress notes.
Clinical Indicators:
Pt admitted with RLE cellulitis on Cefepime/ Vancomycin
Progress notes 07/18-07/21, ' Hemoglobin A1c 6.7-patient has diabetes. Diabetic education consult, dietary consult. Accu-Cheks...'
Please clarify the relationship between these conditions:
Yes, _RLE Cellulitis __ is related to/associated with/due to Diabetes ___.
No, __RLE Cellulitis _ is not related to/associated with/due to _Diabetes __ but it is due to ___. (Please specify)
Unable to determine
Use of terms such as suspected, likely, concern for, or probable (associated with a specific diagnosis that is being evaluated, monitored, or treated as if it exists) are acceptable and can be coded in the inpatient setting, when documented at the
time of discharge.
Thank you,
Louann Mccain RN
CDI Specialist
[place] Text
Please use your independent medical judgment in providing your response.
--- NOTE | 2024-07-21 09:25 | VNURNOTE ---
Rec'ed call back from PCP. Patient has to be seen by them first before VN services. [facility] Intake aware and CM aware.
--- NOTE | 2024-07-21 10:51 | CM ---
Addendum entered by Molly Perera 07/21/24 15:20:
Call from [facility]. States there may be cost of 50% since she will be seeing physician other than own PCP.
Notified patient and she stated she was aware.
Addendum entered by Molly Perera 07/21/24 13:54:
Appt made for [facility] for 07/23 at 10AM-Dr. Damon Ludwig
Discussed needing a physician for home health order. CM also gave patient phone # of wound center to make an appt for follow up as recommended.
PLAN: visiting nurse once seen by residency clinic, follow up with [facility]
daughter to transport
Original Note:
Patient seen at bedside.
Cont Vanco, wound care.
VN unable to see as patient has not seen a PCP in years.
CM discussed with patient how long she will be living in [place] at her sister's home who . (getting it ready for selling it)
She states she will be living in [place] for a month or two. Resides in [facility]
Called [facility] & spoke with Sandra who states they would be able to see the patient once she is discharged in order to initiate Home Health with [facility] to assist with wound care along with follow up at the wound care
center.
Brochure for [facility] given to the patient. Appt will need to be made when approaching discharge.
PLAN: Discharge when stable to home in [place], with visiting nurse once seen by PCP at residency clinic
[2024-07-21 11:05] VITALS: BP 113/69
--- NOTE | 2024-07-21 11:28 | W.PN.ID1 ---
Date of Service
Date of Service: July 21, 2024
Today's Communication
Transition to doxycycline
Assessment / Plan
# Extensive right posterior leg surface wounds, foul smelling, with purulent cellulitis: improving
# Leukocytosis waxing and waning
- arterial US studies normal
- transition Vancomycin (d5) to doxycycline 100 mg po bid trough 07/26/24.
- Appreciate Wound Care recs.
- Need referral to wound care center.
# MRSA colonization
- After completion of abx, decolonize with 2% mupirocin, apply to both nostrils qhs x 5 days monthly x 3 to 6 months.
Avoid shower with chlorhexidine for now as patient with very sensitive skin.
# Acute BLE and BUE rash resolving
- unclear inciting source.
- Supportive care.
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
Asthma
Class III obesity BMI 56
Lymphedema
BLE dermatitis
hx MRSA abscess on face
Cholecystectomy
Breast reduction
Lumber discectomy
Cervical spine fusion
Chief Complaint
-: Cellulitis and Other (Leg wounds)
Subjective / Review of Systems
c/o severe stinging wound pain last night.
Feels cold today.
Vital Signs / Physical Exam
Vital Signs
Vital Signs
Temp Pulse Resp BP Pulse Ox
98.4 F 93 18 134/68 96
07/21/24 07:20 07/21/24 08:25 07/21/24 07:20 07/21/24 08:25 07/21/24 08:00
Physical Exam
Constitutional: No Acute Distress
Cardiovascular: Regular Rate and S1/S2
Pulmonary: Clear
Gastrointestinal: Soft, Non Tender, Non Distended and Normal Bowel Sounds
Extremities: Edema (RLE decreased)
Wound: Other (RLE dressing dry)
Objective Data
Lab Data
Lab Results
07/21/24 07:06
07/21/24 07:06
ESR 63 mm/hour (0-20) H 07/17/24 14:29
Estimated Creat Clear 100 ml/min 07/21/24 07:06
Lactic Acid 1.5 mmol/L (0.7-2.0) 07/17/24 14:29
Lactic Acid Cancelled 07/17/24 14:29
Total Bilirubin 0.4 mg/dl (0.2-1.3) 07/19/24 04:33
AST 29 U/L (14-36) 07/19/24 04:33
ALT 23 U/L (0-35) 07/19/24 04:33
Alkaline Phosphatase 124 U/L (38-126) 07/19/24 04:33
C-Reactive Protein 71.70 mg/L (0.0-10.00) H 07/19/24 04:33
Most recent labs reviewed.
Micro Results:
07/17/24 21:03 Blood Culture - Preliminary
Blood/Venous No Growth in 72 hours- Final report to follow
07/17/24 21:03 Blood Culture - Preliminary
Blood/Venous No Growth in 72 hours- Final report to follow
07/18/24 03:15 MRSA Screen - Final
Nose Staph aureus MRSA
RLE venous duplex: No evidence of deep venous thrombosis in the right lower extremity as described above.
[2024-07-21 11:58] LABS: Glucose - Point of Care 122 mg/dl (70-99)
[2024-07-21] MEDS: ZOFRAN 4 MG PO (12:33)
[2024-07-21] MEDS: TYLENOL 650 MG PO (12:38)
--- NOTE | 2024-07-21 15:03 | VNURNOTE ---
Rec'ed info from that patient has appt at residency clinic Thurs. VN Intake notified of new plans and doctor in community who will oversee VN.
[2024-07-21 15:20] VITALS: BP 141/70
--- NOTE | 2024-07-21 15:59 | PTCARENOTE ---
Pt noted to be at 88% on ra. O2 on 2L applied 02 saturation at 90% noted. currently at 3L O2 at 92 %. no c/o at this time. dr/ resident made aware.
[2024-07-21] MEDS: ROXICODONE 5 MG PO (16:10)
[2024-07-21 18:25] LABS: Glucose - Point of Care 114 mg/dl (70-99)
[2024-07-21 19:27] VITALS: BP 136/75
[2024-07-21] MEDS: VIBRAMYCIN 100 MG PO (21:00)
[2024-07-21 21:38] LABS: Glucose - Point of Care 134 mg/dl (70-99)
[2024-07-21 23:31] VITALS: BP 137/68
--- NOTE | 2024-07-22 04:14 | DOWNTIME ---
There was a [employer] Client Director [employer] Downtime on 07/22/2024 from 0100 to 07/22/2024 at 0355. Downtime documentation of patient's care, including medication administrations, has been reconciled in the electronic record per guidelines. Refer to the
patient's paper chart under the miscellaneous tab to see printed paper medication records and downtime forms.
[2024-07-22 04:18] VITALS: BP 135/75
[2024-07-22 05:31] VITALS: BMI 54.9
[2024-07-22] MEDS: TYLENOL 650 MG PO (05:54)
[2024-07-22 06:02] LABS: % Basophils 0.4 % (0-2); % Eosinophils 3.4 % (0-6); % Immature Granulocytes 0.7 % (0-0.5); % Lymphocytes 8.3 % (20.5-51.1); % Monocytes 6.7 % (1.7-9.3); % Neutrophils 80.5 % (42.2-75.2); Absolute Basophils 0.1 10^3/uL (0-0.2); Absolute Eosinophils 0.5 10^3/uL (0-0.7); Absolute Immature Granulocytes 0.1 10^3/uL (0-0.05); Absolute Lymphocytes 1.1 10^3/uL (1.2-3.4); Absolute Monocytes 0.9 10^3/uL (0.1-0.6); Absolute Neutrophils 10.7 10^3/uL (1.4-6.5); Hematocrit 39.5 % (37.0-47.0); Hemoglobin 11.7 g/dL (12.0-16.0); Mean Corp Hgb Conc. 29.6 g/dL (33.0-37.0); Mean Corpuscular Hgb 24.4 pg (27.0-31.0); Mean Corpuscular Volume 82.5 fL (81.0-99.0); Mean Platelet Volume 8.9 fL (7.4-10.4); Nucleated Red Blood Cells % 0.1 %; Platelet Count 290 10^3/uL (130-400); Red Blood Cell Count 4.79 10^6/uL (4.20-5.40); Red Cell Dist. Width 16.8 % (11.5-14.5); White Blood Cell Count 13.3 10^3/uL (4.8-10.8)
[2024-07-22 06:21] LABS: Blood Urea Nitrogen 19 mg/dl (7-17); Calcium 8.8 mg/dl (8.4-10.2); Chloride 84 mmol/L (98-107); Estimated Creatinine Clearance 114 ml/min; Glucose 135 mg/dl (70-99); Potassium 4.3 mmol/L (3.5-5.1); Sodium 135 mmol/L (135-145); eGFR > 60.00
[2024-07-22 06:31] LABS: Carbon Dioxide 37 mmol/L (22-30)
--- NOTE | 2024-07-22 07:02 | W.PN.HOSP.TC ---
Addendum entered and electronically signed by Asif Remy MD 07/22/24 13:47:
I saw and evaluated the patient. I reviewed the resident�s note and agree with findings and plan as documented in the resident�s note.
Patient states she feels short of breath.
Gen: NAD, AAOx3.
Eyes: EOMI, PERRLA, no scleral icterus.
Neck: supple.
CV: remains RRR, +S1/S2, no m/r/g.
Resp: remains CTAB, no rales, wheezes, or rhonchi.
Abd: +BS, soft, NT, ND
Skin: remains C/D/I dressing RLE
Neuro: CN 2-12 intact, non-focal.
Psych: Normal mood and affect.
Sepsis, POA, due to RLE wound:
-was on Cefepime, now transitioned to Doxy through 07/26/24 as per ID
-BCx NGTD
-wound care
Acute hypoxic respiratory insufficiency:
-was requiring 3L NC O2, now weaned to 1L NC O2
-CXR: Mild pulmonary edema
-check proBNP
-Bumex 2mg IV daily
-daily wts, I/Os
-check echo
Macular rash:
-DDx includes vasculitis, contact dermatitis
-vasculitis labs in process. So far RF, anti-CCP, HARVINDER, ANCAs, HIV NEG. C3/C4 elevated. Rest pending (SPEP, immunoglobulins)
-follow up with rheum after d/c
Hematuria:
-As per patient this has been going on 6 months
-If the patient has vasculitis this could be the cause
-Hb stable
Other problems:
Morbid obesity due to excess calories
Chronic lower extremity edema: continue diuretics
h/o lumbar discectomies and cervical fusion
Asthma, not in acute exac
MGUS per chart
JAMES: CPAP intolerant, uses oxygen at night
Ambulatory dysfunction
Total time spent on today's encounter was 50 minutes which included time spent in counseling the patient/family regarding diagnosis and treatment plan as listed above, goals of care, and symptom management. Case was discussed with nursing staff,
specialists, and care coordinators/case management. All labs and imaging personally reviewed by me. Remainder the time spent in detailed review of previous records, lab data, imaging, and other medical provider documentation.
Original Note:
Today's Communication/Plan
-
Chest X-ray
wean off oxygen
Schedule follow-up appointments
plan discharge
Assessment / Plan
Assessment / Plan
IMPRESSION
58 y/o female with cellulitis of right calf with yellowish blisters on the posterior surface of the leg
Multiple petechial hemorrhages on bilateral upper extremities
Skin thickening of dorsum of left foot
ASSESSMENT AND PLAN
#Oxygen requirement 3 liters since jul
Patient has history of JAMES, Noncompliant to CPAP
Had an episode of vomiting on 2023 and was put on oxygen due to decreased oxygen saturation
Chest xray
add ondansetron for nausea
wean off oxygen
# Right leg cellulitis/left foot eczema/bilateral venous stasis dermatitis
NOSE SWAB POSITIVE FOR MRSA
ID and wound care consulted
- arterial US studies showed normal blood flow through both femoral arteries, normal ankle-brachial index and normal toe brachial index
-Discontinued vancomycin and cefepime
-Oral doxycycline 100mg twice daily started on , will continue until
-Local wound care
1/4 Dakin, Adaptic and Abd pad and Kerlix wrap
No fever spike
# Bilateral upper extremity rash
Vasculitis? Contact dermatitis versus reaction to the cleansing agent
Patient stated that she has had a rash like this once in the past and it went away.
checked Vasculitis panel-positive for increased c3 and c4, rheumatoid factor negative, myeloperoxidase antibody 0, proteinase 3 0, HARVINDER nondetected
Hepatitis B testing negative, HIV negative, urine protein to creatinine ratio 0.5
SPEP pending, immunoglobulin levels pending, TB testing pending
rheumatology consult appreciated-will see the patient in the outdoor once the patient has the cellulitis resolved
#other problems
# Hemoglobin A1c 6.7-patient has diabetes. Diabetic education consult, dietary consult. Accu-Cheks. Pt aware.
# Chronic lower extremity edema-continue torsemide
# History of lumbar discectomies and cervical fusion
# Asthma-NOS stable
# MGUS per chart
# Sleep apnea-CPAP intolerant uses oxygen at night
# Ambulatory dysfunction
# Morbid obesity with a BMI of 56- Affects all aspects of health, need to loose weight. Discussed re weight loss.
Ex-smoker
# DVT prophylaxis-Lovenox
# Full code
Anticipated Discharge: Within 24 hours
Subjective/Interval History
-
Date of Service: July 22, 2024
Complains of mild nausea, she also has been on 3 liters of oxygen since she had an episode of vomiting yesterday
Objective Data
-
Labs:
Laboratory Results
07/22/24
05:40
WBC 13.3 H
Hgb 11.7 L
Hct 39.5
Plt Count 290
Sodium 135
Potassium 4.3
Chloride 84 L
Carbon Dioxide 37 H
BUN 19 H
Creatinine 0.7
Glucose 135 H
Calcium 8.8
Vital Signs:
Vital Signs
Temp Pulse Resp BP Pulse Ox
97.5 F 107 20 135/75 93
07/22/24 04:18 07/22/24 04:18 07/22/24 04:18 07/22/24 04:18 07/22/24 04:18
I&O
07/21/24 07/22/24 07/23/24
06:59 06:59 06:59
Intake Total 2790 / 2790 2880 / 2880
Balance 2789
Review of Systems
-
All other systems: Reviewed and negative
Physical Exam
-
General: Well Developed, Comfortable, Conversant and Morbidly Obese (BMI 55)
HEENT: Anicteric, PERRLA and Oxygen (On 3 liters of oxygen)
Respiratory: Clear to Auscultation and Decreased Breath Sounds (related to body habitus)
Cardiac: Regular Rhythm and S1/S2
GI: Soft, Nontender and Normal Bowel Sounds
Genito-urinary: No Costovertebral Tender
Musculoskeletal: No Clubbing, No Cyanosis, Edema, Right Lower Extrem (redness and swelling, wound on posterior leg has pink wound bed) and Edema, Left Lower Extrem
Skin: Warm and Dry
Neuro: Awake, Oriented and No Motor Deficits
Hematologic / Lymphatic: No Lymphadenopathy
Psych: Calm
[2024-07-22 07:20] VITALS: BP 143/75
[2024-07-22 07:58] LABS: Glucose - Point of Care 146 mg/dl (70-99)
[2024-07-22] MEDS: DAKIN'S SOLUTION 0.125% 1/4 STRENGTH 1 ML TOPICAL (09:15)
[2024-07-22] MEDS: DEMADEX 20 MG PO (09:16)
[2024-07-22] MEDS: SENOKOT 17.2 MG PO ×2 (09:16→20:12)
[2024-07-22] MEDS: VIBRAMYCIN 100 MG PO ×2 (09:16→20:12)
[2024-07-22] MEDS: DESENEX/MITRAZOL/ZEASORB 1 APPLIC TOPICAL ×2 (09:16→20:11)
[2024-07-22] MEDS: MIRALAX PO (09:17)
[2024-07-22] MEDS: ROXICODONE 5 MG PO ×3 (09:25→20:12)
[2024-07-22 11:30] VITALS: BP 118/65
[2024-07-22 11:39] LABS: Glucose - Point of Care 101 mg/dl (70-99)
--- NOTE | 2024-07-22 12:35 | PTCARENOTE ---
CXR completed. STAT IV Lasix ordered. Pt states Lasix does opposite effect of what it is supposed to do and she cannot take it. MD made aware. IV Torsemide ordered instead. Patients home PO Torsemide held at this time. Patient sating 92% on 1 L o2.
--- NOTE | 2024-07-22 13:14 | W.PN.ID1 ---
Date of Service
Date of Service: July 22, 2024
Today's Communication
- Continue doxycycline 100 mg po bid trough 07/26/24.
Assessment / Plan
# Extensive right posterior venous stasis wounds with cellulitis: improving
# Leukocytosis -stable
- arterial US studies normal
- s/p Vancomycin (d5)
- Continue doxycycline 100 mg po bid trough 07/26/24.
- Appreciate Wound Care recs.
- Will benefit from leg compression but pt unable to tolerate at this time.
- Follow-up at wound care center.
# MRSA colonization
- After completion of abx, decolonize with 2% mupirocin, apply to both nostrils qhs x 5 days monthly x 3 to 6 months.
Avoid shower with chlorhexidine for now as patient with very sensitive skin.
# Acute BLE and BUE rash resolved
- unclear inciting source.
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
Asthma
Class III obesity BMI 56
Lymphedema
BLE dermatitis
hx MRSA abscess on face
Cholecystectomy
Breast reduction
Lumber discectomy
Cervical spine fusion
Chief Complaint
-: Cellulitis and Other (Leg wounds)
Subjective / Review of Systems
On oxygen due to pulm edema. no cough.
Vital Signs / Physical Exam
Vital Signs
Vital Signs
Temp Pulse Resp BP Pulse Ox
99.7 F 104 18 118/65 91
07/22/24 11:30 07/22/24 11:30 07/22/24 11:30 07/22/24 11:30 07/22/24 11:30
Physical Exam
Constitutional: No Acute Distress
Pulmonary: Rales (bases)
Gastrointestinal: Soft, Non Tender, Non Distended and Normal Bowel Sounds
Wound: Other (RLE dressing dry)
Objective Data
Lab Data
Lab Results
07/22/24 05:40
07/22/24 05:40
ESR 63 mm/hour (0-20) H 07/17/24 14:29
Estimated Creat Clear 114 ml/min 07/22/24 05:40
Lactic Acid 1.5 mmol/L (0.7-2.0) 07/17/24 14:29
Lactic Acid Cancelled 07/17/24 14:29
Total Bilirubin 0.4 mg/dl (0.2-1.3) 07/19/24 04:33
AST 29 U/L (14-36) 07/19/24 04:33
ALT 23 U/L (0-35) 07/19/24 04:33
Alkaline Phosphatase 124 U/L (38-126) 07/19/24 04:33
C-Reactive Protein 71.70 mg/L (0.0-10.00) H 07/19/24 04:33
Most recent labs reviewed.
Micro Results:
07/17/24 21:03 Blood Culture - Preliminary
Blood/Venous No Growth in 4 days- Final report to follow
07/17/24 21:03 Blood Culture - Preliminary
Blood/Venous No Growth in 4 days- Final report to follow
07/18/24 03:15 MRSA Screen - Final
Nose Staph aureus MRSA
RLE venous duplex: No evidence of deep venous thrombosis in the right lower extremity as described above.
[2024-07-22] MEDS: BUMEX 2 MG IV (14:24)
[2024-07-22 15:18] LABS: NT-proBNP 95.1 pg/ml
[2024-07-22 16:17] VITALS: BP 125/77
[2024-07-22 17:38] LABS: Glucose - Point of Care 119 mg/dl (70-99)
[2024-07-22 19:12] VITALS: BP 128/74
[2024-07-22] MEDS: DAKIN'S SOLUTION 0.125% 1/4 STRENGTH 473 ML TOPICAL (20:11)
[2024-07-22 22:31] LABS: Glucose - Point of Care 121 mg/dl (70-99)
[2024-07-22 23:12] VITALS: BP 118/66
[2024-07-23] MEDS: ZOFRAN 4 MG PO (00:36)
[2024-07-23] MEDS: TYLENOL 650 MG PO (02:07)
[2024-07-23 02:13] LABS: Glucose - Point of Care 127 mg/dl (70-99)
[2024-07-23 03:31] VITALS: BP 118/56
[2024-07-23 04:28] LABS: IgG 1230 mg/dl (700-1600); IgM 126 mg/dl (40-230)
[2024-07-23 04:50] LABS: IgA 901 mg/dl (70-400)
[2024-07-23 05:10] VITALS: BMI 54.7
[2024-07-23 07:15] VITALS: BP 122/59
[2024-07-23 07:30] LABS: % Basophils 0.6 % (0-2); % Eosinophils 3.8 % (0-6); % Immature Granulocytes 0.8 % (0-0.5); % Lymphocytes 12.4 % (20.5-51.1); % Monocytes 7.9 % (1.7-9.3); % Neutrophils 74.5 % (42.2-75.2); Absolute Basophils 0.1 10^3/uL (0-0.2); Absolute Eosinophils 0.5 10^3/uL (0-0.7); Absolute Immature Granulocytes 0.1 10^3/uL (0-0.05); Absolute Lymphocytes 1.5 10^3/uL (1.2-3.4); Absolute Neutrophils 8.9 10^3/uL (1.4-6.5); Hematocrit 37.9 % (37.0-47.0); Hemoglobin 11.1 g/dL (12.0-16.0); Mean Corp Hgb Conc. 29.3 g/dL (33.0-37.0); Mean Corpuscular Hgb 23.7 pg (27.0-31.0); Mean Platelet Volume 9.2 fL (7.4-10.4); Nucleated Red Blood Cells % 0.3 %; Platelet Count 302 10^3/uL (130-400); Red Blood Cell Count 4.68 10^6/uL (4.20-5.40); Red Cell Dist. Width 17.2 % (11.5-14.5)
[2024-07-23 07:49] LABS: Glucose - Point of Care 121 mg/dl (70-99)
[2024-07-23 07:59] LABS: ALT (SGPT) 34 U/L (0-35); AST (SGOT) 42 U/L (14-36); Albumin 3.8 g/dl (3.5-5.0); Alkaline Phosphatase 117 U/L (38-126); Blood Urea Nitrogen 19 mg/dl (7-17); Calcium 8.9 mg/dl (8.4-10.2); Chloride 80 mmol/L (98-107); Estimated Creatinine Clearance 99 ml/min; Glucose 115 mg/dl (70-99); Potassium 3.5 mmol/L (3.5-5.1); Sodium 135 mmol/L (135-145); Total Bilirubin 0.3 mg/dl (0.2-1.3); Total Protein 7.4 g/dl (6.3-8.2); eGFR > 60.00
[2024-07-23 08:12] LABS: Carbon Dioxide 44 mmol/L (22-30)
[2024-07-23] MEDS: BUMEX 2 MG IV (09:20)
[2024-07-23] MEDS: SENOKOT 17.2 MG PO ×2 (09:21→22:07)
[2024-07-23] MEDS: VIBRAMYCIN 100 MG PO ×2 (09:21→22:07)
[2024-07-23] MEDS: MIRALAX PO (09:21)
[2024-07-23] MEDS: DESENEX/MITRAZOL/ZEASORB 1 APPLIC TOPICAL ×2 (09:22→22:07)
[2024-07-23] MEDS: DAKIN'S SOLUTION 0.125% 1/4 STRENGTH 473 ML TOPICAL ×2 (09:22→22:06)
--- NOTE | 2024-07-23 09:31 | W.PN.HOSP.TC ---
Today's Communication/Plan
-
see bold
Assessment / Plan
Assessment / Plan
Gen: NAD, AAOx3.
Eyes: EOMI, PERRLA, no scleral icterus.
Neck: supple.
CV: continues to remain RRR, +S1/S2, no m/r/g.
Resp: continues to remain CTAB, no rales, wheezes, or rhonchi.
Abd: +BS, soft, NT, ND
Skin: continues to remain C/D/I dressing RLE
Neuro: CN 2-12 intact, non-focal.
Psych: Normal mood and affect.
Echo: Technically difficult study - echocontrast used
Normal left ventricular chamber size. Mild concentric left ventricular
hypertrophy. Hyperdynamic left ventricular systolic function. Normal regional
wall motion. LV ejection fraction is 70% by Fried's method of discs.
Mild tricuspid regurgitation. Estimated pulmonary artery pressure of 55-60
mmHg.
No prior study available for comparison.
Sepsis, POA, due to RLE wound:
-was on Cefepime, now transitioned to Doxy through 07/26/24 as per ID
-BCx NGTD
-wound care
Acute hypoxic respiratory insufficiency:
-was requiring 3L NC O2, now weaned to 2L NC O2
-CXR: Mild pulmonary edema
-proBNP 95 and echo above (EF 55-60%) makes heart failure as the cause of the patient's acute hypoxic respiratory insufficiency much less likely
-received IV bumex, will stop at this time (especially with worsening alkalosis some of which is likely due to contraction)
-Echocardiogram is notable for pulmonary hypertension. That and the patient's morbid obesity with a BMI of 54.6 (with JAMES and likely OHS) are likely the causes of the patient's acute hypoxic respiratory insufficiency.
-Home O2 eval
-pulm c/s
Macular rash:
-DDx includes vasculitis, contact dermatitis
-vasculitis labs in process. So far RF, anti-CCP, HARVINDER, ANCAs, HIV NEG. C3/C4 elevated. IgA elevated, IgG and IgM normal. SPEP pending.
-follow up with rheum after d/c
Hematuria:
-As per patient this has been going on 6 months
-If the patient has vasculitis this could be the cause
-Hb stable
Other problems:
Morbid obesity due to excess calories
Chronic lower extremity edema: continue diuretics
h/o lumbar discectomies and cervical fusion
Asthma, not in acute exac
MGUS per chart
JAMES: CPAP intolerant, uses oxygen at night
Ambulatory dysfunction
FULL/Lovenox
Anticipated Discharge: Within 24 hours
Subjective/Interval History
-
Date of Service: July 23, 2024
No new complaints.
Objective Data
-
Labs:
Laboratory Results
07/23/24
05:50
WBC 12.0 H
Hgb 11.1 L
Hct 37.9
Plt Count 302
Sodium 135
Potassium 3.5
Chloride 80 L
Carbon Dioxide 44 H
BUN 19 H
Creatinine 0.8
Glucose 115 H
Calcium 8.9
Total Bilirubin 0.3
AST 42 H
ALT 34
Alkaline Phosphatase 117
Vital Signs:
Vital Signs
Temp Pulse Resp BP Pulse Ox
97.5 F 93 17 122/59 96
07/23/24 07:15 07/23/24 09:20 07/23/24 07:15 07/23/24 09:20 07/23/24 07:15
I&O
07/22/24 07/23/24 07/24/24
06:59 06:59 06:59
Intake Total 2880 / 2880 1440 / 1440
Output Total 1050 / 1050
Balance 2880 / 2880 390 / 390
[2024-07-23 09:51] LABS: Quantiferon Mitogen minus NIL 3.81 IU/mL; Quantiferon Plus TB1 minus NIL 0.08 IU/mL (<=0.34); Quantiferon Plus TB2 minus NIL 0.08 IU/mL (<=0.34); Quantiferon TB Gold Plus Negative (Negative)
[2024-07-23] MEDS: ROXICODONE 5 MG PO ×3 (10:19→22:30)
--- NOTE | 2024-07-23 10:50 | W.PN.ID1 ---
Date of Service
Date of Service: July 23, 2024
Today's Communication
Continue doxycycline 100 mg po bid trough 07/26/24.
ID will sign off.
Assessment / Plan
# Extensive right posterior LE venous stasis wounds with cellulitis: improving
# Leukocytosis -stable to improved
- arterial US studies normal
- s/p Vancomycin (d5)
- Continue doxycycline 100 mg po bid trough 07/26/24.
- Appreciate Wound Care recs.
- Pt now tolerating MARGIE-WRAP compression.
- Follow-up at wound care center.
# MRSA colonization
- After completion of abx, decolonize with 2% mupirocin, apply to both nostrils qhs x 5 days monthly x 3 to 6 months.
Avoid shower with chlorhexidine for now as patient with very sensitive skin.
# Acute BLE and BUE rash resolved
- unclear inciting source.
ID will sign off.
# Conditions DIRECTOR EXPORT
Asthma
Class III obesity BMI 56
Lymphedema
BLE dermatitis
hx MRSA abscess on face
Cholecystectomy
Breast reduction
Lumber discectomy
Cervical spine fusion
Chief Complaint
-: Cellulitis and Other (Leg wounds)
Subjective / Review of Systems
Leg not as painful. Now tolerating MARGIE-WRAP
Vital Signs / Physical Exam
Vital Signs
Vital Signs
Temp Pulse Resp BP Pulse Ox
97.5 F 93 17 122/59 96
07/23/24 07:15 07/23/24 09:20 07/23/24 07:15 07/23/24 09:20 07/23/24 07:15
Physical Exam
Constitutional: No Acute Distress
Pulmonary: Clear
Gastrointestinal: Soft, Non Tender and Non Distended
Wound: Other (RLE dressing just changed by nurse this am- less drainage/edema/erythema)
Neurological: Awake and AO x 3
Objective Data
Lab Data
Lab Results
07/23/24 05:50
07/23/24 05:50
ESR 63 mm/hour (0-20) H 07/17/24 14:29
Estimated Creat Clear 99 ml/min 07/23/24 05:50
Lactic Acid 1.5 mmol/L (0.7-2.0) 07/17/24 14:29
Lactic Acid Cancelled 07/17/24 14:29
Total Bilirubin 0.3 mg/dl (0.2-1.3) 07/23/24 05:50
AST 42 U/L (14-36) H 07/23/24 05:50
ALT 34 U/L (0-35) 07/23/24 05:50
Alkaline Phosphatase 117 U/L (38-126) 07/23/24 05:50
C-Reactive Protein 71.70 mg/L (0.0-10.00) H 07/19/24 04:33
Most recent labs reviewed.
Micro Results:
07/17/24 21:03 Blood Culture - Final
Blood/Venous No Growth - Final Report
07/17/24 21:03 Blood Culture - Final
Blood/Venous No Growth - Final Report
07/18/24 03:15 MRSA Screen - Final
Nose Staph aureus MRSA
RLE venous duplex: No evidence of deep venous thrombosis in the right lower extremity as described above.
[2024-07-23 11:05] VITALS: BP 130/78
[2024-07-23 12:15] LABS: Glucose - Point of Care 120 mg/dl (70-99)
--- NOTE | 2024-07-23 13:04 | CON.PUL ---
Consultation
Consultation Request
Date/Time Consultation Requested: 07/23/2024
Date/Time Consultation Performed: 07/23/2024
Requesting Provider: Dr. Remy
Performing Provider: Dr. Rashard Shaw
Reason for Consultation: Hypoxemic respiratory failure
Medical History
Past Medical History
Past Medical History: Other (See assessment plan)
Social History
Tobacco: Smoker (Quit in 2005)
Alcohol: None
Drug: None
Family History
Family History: Reviewed & Not Pertinent
Allergies / Home Medications
Allergies
Allergy/AdvReac Type Severity Reaction Status Date / Time
piperacillin [From Zosyn] Allergy Severe Throat Verified 07/18/24 15:26
Tightness;
tolerated
cephalexin
in the past
tazobactam [From Zosyn] Allergy Severe Throat Verified 07/17/24 20:48
Tightness
levofloxacin [From Levaquin] Allergy Intermediate Nausea / Verified 07/17/24 14:02
Vomiting
clindamycin Allergy Mild Itching Verified 07/20/24 12:00
tetanus toxoid, adsorbed Allergy Unknown Verified 07/17/24 19:32
Home Medications
�Medication �Instructions �Recorded �Confirmed �Last Taken �Type
fexofenadine 60 mg-pseudoephedrine 1 tab PO Q12H PRN allergies 07/17/24 07/17/24 Unknown History
ER 120 mg tablet,ext.release,12 hr
([place]-D 12 Hour)
torsemide 20 mg tablet 20 mg PO DAILY Fluid 07/17/24 07/17/24 Unknown History
Retention/Swelling
blood sugar diagnostic (Contour #50 ea 07/20/24 Unknown Rx
Next Test Strips)
lancets (Microlet Lancet) #50 ea 07/20/24 Unknown Rx
Review of Systems
-
History Source: Patient
All other systems: Negative unless noted
Vitals / Labs / Diagnostic Testing
Vital Signs
Temp Pulse Resp BP Pulse Ox
98.2 F 97 18 130/78 95
07/23/24 11:05 07/23/24 11:05 07/23/24 11:05 07/23/24 11:05 07/23/24 11:05
Lab Data
07/23/24 05:50
07/23/24 05:50
Microbiology
07/17/24 21:03 Blood/Venous Blood Culture - Final
No Growth - Final Report
07/17/24 21:03 Blood/Venous Blood Culture - Final
No Growth - Final Report
Diagnostic Testing:
Physical Exam
-
HEENT: Normocephalic
Cardiovascular: S1/S2
Respiratory: Non-Labored Respirations
GI: Soft and Distended (Obese)
Neurology: Awake, Alert, Oriented, AO x 3 and No Motor Deficits
Skin: Other (Upper extremity maculopapular rash) and Other (Right lower extremity)
General: Respiratory Distress (n) and Comfortable
Assessment
-
58-year-old woman with past medical history noted. Initially admitted on 07/17/2024 complaining of a right calf wound. Admitted for sepsis due to lower extremity wound infection. Also discovered to have bilateral upper extremity rash found to
have increased inflammatory markers. Developed mild hypoxemic respiratory insufficiency, no evidence for heart failure. We were consulted for evaluation of mild hypoxemia and pulmonary hypertension on echocardiogram 07/23/2024
Acute respiratory insufficiency requiring 2 L supplemental oxygen
Chest x-ray: Reviewed, showed mild increased interstitial markings bilaterally
proBNP-95
Echo:: Normal LVEF. Moderate pulmonary hypertension.
Pulmonary hypertension-suspect precapillary-due to untreated obstructive sleep apnea/obesity hypoventilation syndrome possible hypercapnic respiratory failure.
Rule out other etiologies as well. Finalizing workup may be done in the outpatient setting
Right lower extremity wound-presented with sepsis
Macular rash-evaluation in progress
Hematuria-going on for 6 weeks
Conditions present prior admission:
Obesity-BMI 54
Chronic lower extremity edema
History of lumbar surgery/
Cervical fusion
History of asthma
History of breast reduction
History of cholecystectomy
History of MGUS
Obstructive sleep apnea-intolerant to CPAP-on nocturnal oxygen
Ambulatory dysfunction
Plan recommendation:
Hypoxemic respiratory sufficiency-found to have moderate to severe pulmonary hypertension on echocardiogram.
Currently on 2 L at rest. Part of the hypoxemia may be from subsegmental atelectasis from morbid obesity and immobility.
-
Echocardiogram noted: Normal LVEF. Systolic pulmonary artery pressure 55-60 mmHg. Normal biventricular size and function.
Normal right atrium.
proBNP is normal.
Broad differential diagnosis: Untreated obstructive sleep apnea/possibly obesity hypoventilation syndrome-alkalosis seen on BMP.
Rule out chronic hypercapnia: Obtain ABG.
To initiate workup for pulmonary hypertension also will obtain a CT angiogram of the chest. Rule out thromboembolic disease. Patient is high risk but suspicion not very high but possible given obesity and ongoing lower extremity edema plan
Lower extremity Dopplers are negative
Patient have a diagnosis of obstructive apnea intolerant to CPAP. Chronic nocturnal hypoxemia also be contributing.
-
Rash: ?Possible vasculitis. Evaluation ongoing.
So far no evidence for lung involvement.
Precapillary pulmonary hypertension may be associated with vasculitis. Not highly suspected at this point with normal RV and normal RA. Echocardiogram tends to overestimate pulmonary pressures in patients with obesity
Rheumatoid factor negative, anti-CCP negative, HARVINDER negative, ANCA antibodies negative.
complements elevated.
Renal function is normal
Urinalysis: With RBCs but no significant proteinuria.
LFTs normal
Chest x-ray with evidence for interstitial lung disease or nodules
Will obtain CT of the chest as above.
-
Incentive spirometry-part of the hypoxemia may be due to obesity and subsegmental atelectasis due to immobility.
Patient does have nocturnal oxygen at home.
Weight loss
Increase activity as able
-
Continue ox supplementation to maintain pulse ox above 90%.
Home oxygen assessment prior to discharge. Morbid obesity in itself could cause hypoxemia.
-
Question history of asthma-not on inhalers
Not bronchospastic in exam
-
Recommend outpatient pulmonary [id number]-[id number] discharge. 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 I advised her to make a follow-up appointment with her filling machine operator to complete evaluation.
-
She usually lives in [place]. She will stay around [place] for about another month due to family issues.
Discussed with caseworker protective services.

Data reviewed:
Echo: Technically difficult study - echocontrast used
Normal left ventricular chamber size.
Mild concentric left ventricular
hypertrophy.
Hyperdynamic left ventricular systolic function.
Normal regional
wall motion. LV ejection fraction is 70% by Fried's method of discs.
Mild tricuspid regurgitation.
Estimated pulmonary artery pressure of 55-60
mmHg.
No prior study available for comparison.
[2024-07-23 13:56] LABS: B.E. 25.5 mmol/L; O2 Saturation % 98.7 % (94-98); O2 Therapy 3L; PO2 88 mmHg (83-108); pH 7.48 (7.35-7.45)
[2024-07-23 13:58] LABS: HCO3 53.6 mmol/L (21-28); PCO2 72 mmHg (32-35)
--- NOTE | 2024-07-23 14:05 | CM ---
Met with patient at bedside.
Patient had home 02 assessment - will require home 02
Called Evy from [facility] [phone] who will see patient and leave her with 2 tanks & teach until the patient returns to home since there is no one there to receive 02 delivery. Patient is to call [facility] when leaving the hospital at [phone]
(this # was also given to daughter).
CM to fax face sheet, clinicals to [facility] at [phone]
Pulmonary saw patient today - CT scan to be ordered
Residency program PCP appt cancelled today. (order for [facility]) Patient to reschedule. Spoke with daughter Deena Mccracken regarding appt. as well as follow up with [facility].
PLAN: Home, patient will need to reschedule appt with Residency clinic for [facility], [facility]
Daughter to transport
[2024-07-23 15:10] VITALS: BP 143/68
[2024-07-23 19:21] VITALS: BP 138/65
[2024-07-23 21:46] LABS: Glucose - Point of Care 156 mg/dl (70-99)
[2024-07-23 23:37] VITALS: BP 138/65
[2024-07-24 03:32] VITALS: BP 132/64
[2024-07-24 05:50] VITALS: BMI 54.2
--- NOTE | 2024-07-24 07:07 | W.PN.HOSP.TC ---
Addendum entered and electronically signed by Asif Remy MD 07/24/24 12:04:
I saw and evaluated the patient. I reviewed the resident�s note and agree with findings and plan as documented in the resident�s note.
Gen: remains NAD, AAOx3.
Eyes: EOMI, PERRLA, no scleral icterus.
Neck: supple.
CV: RRR, +S1/S2, no m/r/g.
Resp: CTAB, no rales, wheezes, or rhonchi.
Abd: remains +BS, soft, NT, ND
Neuro: CN 2-12 intact, non-focal.
Psych: Normal mood and affect.
Echo: Technically difficult study - echocontrast used
Normal left ventricular chamber size. Mild concentric left ventricular
hypertrophy. Hyperdynamic left ventricular systolic function. Normal regional
wall motion. LV ejection fraction is 70% by Fried's method of discs.
Mild tricuspid regurgitation. Estimated pulmonary artery pressure of 55-60
mmHg.
No prior study available for comparison.
Sepsis, POA, due to RLE wound:
-was on Cefepime, now transitioned to Doxy through 07/26/24 as per ID
-BCx NGTD
-wound care
Acute hypoxic respiratory insufficiency:
-was requiring 3L NC O2, now weaned to 2L NC O2
-CXR: Mild pulmonary edema
-proBNP 95 and echo above (EF 55-60%) makes heart failure as the cause of the patient's acute hypoxic respiratory insufficiency much less likely
-received IV bumex, will stop at this time (especially with worsening alkalosis some of which is likely due to contraction)
-Echocardiogram is notable for pulmonary hypertension. That and the patient's morbid obesity with a BMI of 54.6 (with JAMES and likely OHS) are likely the causes of the patient's acute hypoxic respiratory insufficiency.
-Home O2 eval done, patient will be discharged on home oxygen. Case discussed with pulmonary today.
Macular rash:
-DDx includes vasculitis, contact dermatitis
-vasculitis labs in process. So far RF, anti-CCP, HARVINDER, ANCAs, HIV NEG. C3/C4 elevated. IgA elevated, IgG and IgM normal. SPEP pending.
-follow up with rheum after d/c
Hematuria:
-As per patient this has been going on 6 months
-If the patient has vasculitis this could be the cause
-Hb stable
Other problems:
Morbid obesity due to excess calories
Chronic lower extremity edema: continue diuretics
h/o lumbar discectomies and cervical fusion
Asthma, not in acute exac
MGUS per chart
JAMES: CPAP intolerant, uses oxygen at night
Ambulatory dysfunction
Medically cleared for discharge.
Total time spent on d/c = 34 min. This included today's physical exam, progress note, review of laboratory and diagnostic data, preparation of discharge documents and prescriptions, and discussions about the pt's hospital course and discharge plan
with the patient and other medical collections representative involved in the patient's care.
Original Note:
Today's Communication/Plan
-
Wound care consult
Counseled about CPAP compliance
Do follow-up appointments, appointment with primary care physician to arrange for a visiting nurse
Plan discharge
Assessment / Plan
Assessment / Plan
IMPRESSION
A 58-year-old female, morbidly obese with a BMI of 54.2, lying on the bed with 3 L of oxygen via nasal cannula and bandage in place on the right leg. She is comfortable and conversant and participate in discussion for her pulmonary hypertension
workup. Admitted in hospital for right lower extremity cellulitis secondary to diabetes and chronic lymphedema, fulfilled sepsis criteria on admission.
ASSESSMENT AND PLAN
Sepsis, POA, due to RLE wound:
-Patient had sepsis criteria on admission due to right lower extremity wound
-Leukocytes count going down and patient afebrile
-Blood cultures negative
-Patient started on doxycycline 100 mg 12 hourly, started on July 21, total 10 doses ordered
Acute hypoxic respiratory insufficiency:
-Patient on 3 L oxygen via nasal cannula
-Chest x-ray showed mild pulmonary edema
-proBNP 95 and echo Normal regional wall motion. LV ejection fraction is 70% by Fried's method of discs. Heart failure less likely
Mild tricuspid regurgitation. Estimated pulmonary artery pressure of 55-60 mmHg. Pulmonary hypertension causes to be assessed.
-Patient has childhood history of asthma, was told that she grew out of it but she did use the inhaler on and off, the last time she required the inhaler it was 4 years ago when she had COVID.
-Patient has JAMES but did not use CPAP for the last 2 years. ABGs show chronic hypercapnia, patient counseled about the need of compliance to CPAP.
-Pulmonology consult appreciated, CT chest done which showed subsegmental atelectasis in the right upper lobe but no signs of central pulmonary embolism.
-Patient evaluated for home oxygen needs, arranged oxygen for home.
Macular rash:
-DDx includes vasculitis, contact dermatitis
-vasculitis labs in process. So far RF, anti-CCP, HARVINDER, ANCAs, HIV NEG. C3/C4 elevated. IgA elevated, IgG and IgM normal. SPEP pending.
-Patient's immunoglobulin levels are within normal limits, past history of monoclonal gammopathy of uncertain significance doubtful?
-follow up with rheum after d/c
Hematuria:
-As per patient this has been going on 6 months
-Vasculitis could possibly explain that, workup still under process
-Hb stable
Other problems:
# Hemoglobin A1c 6.7-patient has diabetes. Diabetic education consult, dietary consult. Accu-Cheks. Pt aware.
# Chronic lower extremity edema
# History of lumbar discectomies and cervical fusion
# Asthma-NOS stable
# MGUS per chart
# Sleep apnea-CPAP intolerant uses oxygen at night
# Ambulatory dysfunction
# Morbid obesity with a BMI of 56- Affects all aspects of health, need to loose weight. Discussed re weight loss.
Ex-smoker
# DVT prophylaxis-Lovenox
# Full code
Anticipated Discharge: 24 - 48 hours
Subjective/Interval History
-
Date of Service: July 24, 2024
No active issues except mild pain in the right leg with the cellulitis wound. Patient still has 3 L of oxygen.
Objective Data
-
Vital Signs:
Vital Signs
Temp Pulse Resp BP Pulse Ox
98.3 F 83 19 132/64 97
07/24/24 03:32 07/24/24 03:32 07/24/24 03:32 07/24/24 03:32 07/24/24 03:32
I&O
07/23/24 07/24/24 07/25/24
06:59 06:59 06:59
Intake Total 1440 / 1440 1620 / 1620
Output Total 1050 / 1050 3725 / 3725
Balance 390 / 390 -2105 / -2105
Review of Systems
-
All other systems: Reviewed and negative
Physical Exam
-
General: Well Developed, Comfortable, Conversant and Obese (BMI 54.2)
HEENT: Moist Mucous Membranes, Anicteric and PERRLA
Respiratory: Clear to Auscultation
Cardiac: Regular Rhythm and S1/S2
GI: Soft, Nontender and Normal Bowel Sounds
Genito-urinary: No Costovertebral Tender
Musculoskeletal: Edema, Right Lower Extrem (Redness and swelling, wound healing well, pink wound base, blisters healing)
Skin: Warm and Rash (Fainting petechial rash on both arms dorsal surface, some scabbed wounds on both foot possibly venous stasis)
Neuro: Awake, Alert, Oriented and No Motor Deficits
Hematologic / Lymphatic: No Lymphadenopathy
Psych: Calm
[2024-07-24 07:25] VITALS: BP 132/70
[2024-07-24 08:02] LABS: Glucose - Point of Care 121 mg/dl (70-99)
[2024-07-24] MEDS: DESENEX/MITRAZOL/ZEASORB 1 APPLIC TOPICAL (09:16)
[2024-07-24] MEDS: DAKIN'S SOLUTION 0.125% 1/4 STRENGTH 473 ML TOPICAL (09:16)
[2024-07-24] MEDS: VIBRAMYCIN 100 MG PO (09:16)
[2024-07-24] MEDS: MIRALAX PO (09:17)
[2024-07-24] MEDS: SENOKOT PO (09:17)
[2024-07-24] MEDS: ROXICODONE 5 MG PO ×2 (09:20→15:20)
[2024-07-24 09:41] LABS: Blood Urea Nitrogen 18 mg/dl (7-17); Chloride 79 mmol/L (98-107); Estimated Creatinine Clearance 113 ml/min; eGFR > 60.00
[2024-07-24 10:04] LABS: Glucose 115 mg/dl (70-99); Potassium 3.7 mmol/L (3.5-5.1); Sodium 135 mmol/L (135-145)
--- NOTE | 2024-07-24 10:39 | CM ---
Met with patient today.
Discussed follow-up with residency program for an appt (for [facility]).
Discussed follow up with wound care center.
Both numbers given to the patient on the brochure at bedside.
Patient had 02 tanks here delivered yesterday by Evy from [employer] & will need to call [facility] upon discharge ([phone]) to coordinate home delivery.
PLAN: Home in [place] with home 02 set up
daughter to transport.
[2024-07-24 10:42] LABS: Carbon Dioxide 44 mmol/L (22-30)
[2024-07-24 11:20] VITALS: BP 119/63
--- NOTE | 2024-07-24 11:27 | W.PN.PUL3 ---
Today's Communication / Plan
-
Continue with current care
From the pulmonary perspective-no additional recommendations.
Patient understands importance of use of nocturnal noninvasive mechanical ventilation. She has been noncompliant in the past
Strongly advised to follow-up with her bellmaker
Echocardiogram will need to be repeated in the future
Discharge planning
Sign off
Assessment
-
58-year-old woman with past medical history noted. Initially admitted on 07/17/2024 complaining of a right calf wound. Admitted for sepsis due to lower extremity wound infection. Also discovered to have bilateral upper extremity rash found to
have increased inflammatory markers. Developed mild hypoxemic respiratory insufficiency, no evidence for heart failure. We were consulted for evaluation of mild hypoxemia and pulmonary hypertension on echocardiogram 07/23/2024
Acute respiratory insufficiency requiring 2 L supplemental oxygen
Chest x-ray: Reviewed, showed mild increased interstitial markings bilaterally
proBNP-95
Echo:: Normal LVEF. Moderate pulmonary hypertension.
Pulmonary hypertension-suspect precapillary-due to untreated obstructive sleep apnea/obesity hypoventilation syndrome possible hypercapnic respiratory failure.
Rule out other etiologies as well. Finalizing workup may be done in the outpatient setting
Right lower extremity wound-presented with sepsis
Macular rash-evaluation in progress
Hematuria-going on for 6 weeks
Conditions present prior admission:
Obesity-BMI 54
Chronic lower extremity edema
History of lumbar surgery/
Cervical fusion
History of asthma
History of breast reduction
History of cholecystectomy
History of MGUS
Obstructive sleep apnea-intolerant to CPAP-on nocturnal oxygen
Ambulatory dysfunction
Plan recommendation:
Hypoxemic respiratory sufficiency-found to have moderate to severe pulmonary hypertension on echocardiogram.
Currently on 2 L at rest. Part of the hypoxemia may be from subsegmental atelectasis from morbid obesity and immobility.
Okay to discharge on supplemental oxygen.
-
Echocardiogram noted: Normal LVEF. Systolic pulmonary artery pressure 55-60 mmHg. Normal biventricular size and function.
Normal right atrium.
proBNP is normal.
Broad differential diagnosis: Untreated obstructive sleep apnea/possibly obesity hypoventilation syndrome-alkalosis seen on BMP.
Arterial blood gas 07/23/2024: Confirms chronic compensated hypercapnic respiratory failure 7.40 -likely obesity hypoventilation syndrome/obstructive sleep apnea.
Patient reports history of obstructive sleep apnea-has a bellmaker in [place]. Intolerant to CPAP in the past. At this point not interested she will address it in the outpatient setting.
Discussed with patient risk for readmission, risk of if if she does not use noninvasive mechanical ventilation or have significant weight loss.
Okay to continue with nocturnal oxygen
Should follow-up with her bellmaker to address this issue in the outpatient setting.
-
CT angiogram of the chest 07/23/2024: Reviewed, no evidence for significant central pulmonary embolism. No significant parenchymal lung abnormalities. Minimal subsegmental atelectasis.
Lower extremity Dopplers are negative
-
Rash: ?Possible vasculitis. Evaluation ongoing.
No evidence for lung involvement on CT angiogram of the chest 07/23/2024.
Precapillary pulmonary hypertension may be associated with vasculitis. Not highly suspected at this point with normal RV and normal RA. Echocardiogram tends to overestimate pulmonary pressures in patients with obesity
Suspect mainly driven by above. Hopefully sleep disorder can be treated in the outpatient setting and repeat echocardiogram at some point.
-
Rheumatoid factor negative, anti-CCP negative, HARVINDER negative, ANCA antibodies negative.
complements elevated.
Renal function is normal
Urinalysis: With RBCs but no significant proteinuria.
LFTs normal
CT chest without interstitial lung disease.
-
Incentive spirometry encouraged-part of the hypoxemia may be due to obesity and subsegmental atelectasis due to immobility.
Patient does have nocturnal oxygen at home.
Weight loss strongly recommended. May benefit from pharmacological therapy. Defer to primary care in the outpatient setting.
Increase activity as able
-
Continue ox supplementation to maintain pulse ox above 90%.
Home oxygen assessment prior to discharge. Morbid obesity in itself could cause hypoxemia.
-
? history of asthma-not on inhalers-at this point not active.
Not bronchospastic in exam
-
Recommend outpatient pulmonary [id number]-[id number] discharge. Patient states that she has a bellmaker in [place]. I advised her to make a follow-up appointment with her bellmaker to complete evaluation.
-
She usually lives in [place]. She will stay around [place] for about another month due to family issues.
Dr. Shaw discussed with case management. Placement ongoing.
-
I agree with discharge planning.
No additional recommendation from the pulmonary perspective in the inpatient setting.
Signed off.
Patient aware of ramifications of untreated hypercapnic respiratory failure due to obesity hypoventilation syndrome including readmission rate, rate etc. Intolerant to CPAP but not interested at this point.-will need reevaluation in the
outpatient setting from her bellmaker to transition to BiPAP

Data reviewed:
Echo: Technically difficult study - echocontrast used
Normal left ventricular chamber size.
Mild concentric left ventricular
hypertrophy.
Hyperdynamic left ventricular systolic function.
Normal regional
wall motion. LV ejection fraction is 70% by Fried's method of discs.
Mild tricuspid regurgitation.
Estimated pulmonary artery pressure of 55-60
mmHg.
No prior study available for comparison.
Subjective Data
-
Date of Service:
Date of Service: July 24, 2024
Chief Complaint: Pulmonary Follow Up (Hypoxemia/pulmonary hypertension/morbid obesity)
Subjective:
No new complaints
Remains on low rate supplemental oxygen
Review of Systems
Cardiopulmonary: Dyspnea (None at rest), Dyspnea on Exertion and Cough (n)
GI: Abdominal Pain (n)
Neuro: Headache (n)
Objective Data
Data Reviewed
Vital Signs / I&O / Oxygen:
Vital Signs
Temp Pulse Resp BP Pulse Ox
98.4 F 76 16 132/70 96
07/24/24 07:25 07/24/24 07:25 07/24/24 07:25 07/24/24 07:25 07/24/24 11:15
Intake and Output
07/23/24 07/24/24 07/25/24
06:59 06:59 06:59
Intake Total 1440 / 1440 1620 / 1620
Output Total 1050 / 1050 3725 / 3725
Balance 390 / 390 -2105 / -2105
SaO2 96
Nasal Cannula flow liters per 3
minute
Physical Exam
General: Respiratory Distress
HEENT: Normocephalic
Cardiovascular: S1-S2
Respiratory: Clear
GI: Distended (Obese)
Neurology: Awake, Alert and Oriented
Skin: Other (Chronic lower extremity wound.)
Labs/Micro/Reports
Lab Data
07/23/24 05:50
07/24/24 08:29
Laboratory Results
07/23/24
13:41
pH 7.48 H
pCO2 72 H*
pO2 88
HCO3 53.6 H*
O2 Delivery Level 3l
Microbiology
07/17/24 21:03 Blood/Venous Blood Culture - Final
No Growth - Final Report
07/17/24 21:03 Blood/Venous Blood Culture - Final
No Growth - Final Report
--- NOTE | 2024-07-24 11:52 | W.DCSUMMARY ---
Addendum entered and electronically signed by Asif Remy MD 07/24/24 12:10:
Read, reviewed, and agree. See same day progress note for additional details.
Original Note:
Discharge Summary
Discharge Data
Date of Admission: 07/17/24
Date of Discharge: 07/24/24
-
Pending Results: No
Hospital Course
Discharging Physician : Dr.Joshua Remy, Dr. Carlin Verdugo
Disposition : Home
Primary care physician : none
Principal Discharge diagnosis : Right lower extremity cellulitis
Chronic Discharge diagnosis :
Asthma
Class III obesity BMI 56
Lymphedema
BLE dermatitis
hx MRSA abscess on face
Cholecystectomy
Breast reduction
Lumber discectomy
Cervical spine fusion
Hospital Course :
Right lower extremity cellulitis
Patient stated that she had thick skin of the left foot for which she was taking a cream recommended by the convention manager, she used the cream for skin darkening on the right foot too. She noticed that the wound was getting worse and started to
spread involving the leg's posterior surface with redness and blistering. Peripheral venous lower extremity right side Doppler ultrasound showed no deep venous thrombosis. There was leukocytosis on the CBC. Infectious disease was involved in the
care of the patient who advised empiric antibiotic therapy with cefepime and vancomycin. An arterial Doppler was done on advice of ID which showed normal IGNACIO and TBI indicis.
The patient's wound and leukocyte count improving so the IV vancomycin was shifted to oral doxycycline and cefepime was discontinued.
Wound care clinic efforts appreciated.
Patient had sudden onset shortness of breath, required oxygen 3 L via nasal cannula. Chest x-ray showed mild pulmonary edema, echocardiography showed normal left ventricular ejection fraction of 70% and estimated pulmonary artery pressure of 55 to
60 mmHg
Pulmonology consultation appreciated, ordered CT chest to rule out pulmonary embolism. Patient has history of JAMES and is noncompliant to CPAP, possible cause of pulmonary hypertension in the patient
Patient counseled about the JAMES and CPAP and would follow-up with her [employer] general supervisor in [place].
Patient evaluated for home oxygen requirements and would arrange that at home with the help of Mariama.
Patient had an extensive workup regarding vasculitis and would follow-up with the tombstone erector on outpatient basis. Patient has elevated C3 and C4 levels.
SPEP and TB screening pending.
MRSA colonization
During the workup patient was also found to have MRSA colonization in the nose, as per ID after completion of antibiotics, decolonize with 2% mupirocin, apply to both nostrils nightly, 5 days monthly for 3 to 6 months.
Autoimmune process
During evaluation in the hospital patient had petechiae on both hands dorsal surface. She said she had this before and it goes away spontaneously. The patient also had on and off blood in urine. Rheumatology was consulted who advised autoimmune
workup and follow-up on outdoor basis
New onset diabetes
Hemoglobin A1c 6.7- Diabetic education consult, dietary consult. Accu-Cheks.
Patient never knew that she had high blood sugar levels so she would have blood sugar charting done at home and follow-up with her primary care physician
Important imaging findings :
EXTREMITY ARTERIAL STUDY IMPRESSION:07/20
RIGHT LOWER EXTREMITY: IGNACIO unmeasurable due to noncompressible arteries. TBI within normal limits at 0.90. Arterial duplex examination reveals multiphasic waveforms from the common femoral artery through the proximal superficial femoral artery.
Monophasic waveforms are identified in the mid and distal superficial femoral artery as well as the popliteal artery. There are no focal velocity elevations to suggest significant stenosis.
LEFT LOWER EXTREMITY: IGNACIO within normal limits at 1.09. TBI within normal limits at 0.79. Arterial duplex examination reveals multiphasic waveforms from the common femoral artery through the popliteal artery with no focal velocity elevations to
suggest significant stenosis.
PERIPHERAL VASCULAR ULTRASOUND IMPRESSION:07/17
Findings: There is spontaneous, phasic flow with compressibility in the right common femoral, femoral, and popliteal veins. Flow is also detected in the posterior tibial and peroneal veins on the right.
1. No evidence of deep venous thrombosis in the right lower extremity
CHEST X_RAY FINDINGS: 07/22
Lungs: There is mild elevation of the right hemidiaphragm. Minimal bibasilar opacities, likely atelectasis. No pleural effusion or pneumothorax.
Heart: Cardiac and mediastinal contours are unremarkable.
Osseous structures: No acute osseous abnormality. Lower cervical ACDF. Mild degenerative changes of the thoracic spine. Cholecystectomy.
IMPRESSION:
Mild elevation of the right hemidiaphragm with bibasilar atelectasis
CT Chest Study 07/23
CLINICAL INDICATION: Hypoxemia, pulmonary HTN,IMPRESSION:
No findings to suggest central pulmonary embolism.
Small focus of opacification in the right upper lobe anteriorly most likely representing subsegmental atelectasis. Pneumonia would be unlikely.
ECHOCARDIOGRAPHY CONCLUSIONS 07/22
Technically difficult study - echocontrast used
Normal left ventricular chamber size. Mild concentric left ventricular
hypertrophy. Hyperdynamic left ventricular systolic function. Normal regional
wall motion. LV ejection fraction is 70% by Fried's method of discs.
Mild tricuspid regurgitation. Estimated pulmonary artery pressure of 55-60
mmHg.
No prior study available for comparison.
Discharge Plan
-
Patient Disposition: Home (Routine Discharge)
Discharge Diagnosis/Procedures: Right lower extremity cellulitis
Condition: Fair
Diet: Diabetic, Carb Controlled
Activity: As tolerated
Driving Restrictions: As prior to admission
Bathing Restrictions: OK to Shower
Other Services: VN
Activity Restrictions/Additional Instructions:
Wound Care Instructions
Right leg wounds-wash wound with saline, then wipe with 1/4 strength Dakin's solution, Apply adaptic, alginate, abdominal pads and wrap with Kerlix. Change twice daily or more if significant drainage.
R knee high Fabian wrap with light compression as tolerated; remove at bedtime; reapply every morning.
Follow up with convention manager.
Follow up at wound care center call for an appointment.
Referrals:
NONE,* [Family Provider] - in less than 1 week
Prescriptions:
New
(DME) Contour Next Test Strips Strip
Qty: 50 0RF
Rx Instructions:
Pt Testing 1 time a day
(DME) lancets [Microlet Lancet] Misc
Qty: 50 0RF
Rx Instructions:
Pt testing 1 time a day
doxycycline hyclate 100 mg Capsule
100 mg PO Q12 5 Days Qty: 10 0RF
Continued
fexofenadine-pseudoephedrine [[place]-D 12 Hour] 60-120 mg Tablet Extended Release 12 Hr
1 tab PO Q12H PRN (Reason: allergies)
Discontinued
torsemide 20 mg Tablet
20 mg PO DAILY
Discharge Orders:
Discharge Patient (As Directed); Ordered 07/24/24
Ordered By: Carlin Verdugo
Discharge Date and Time
Print Language: CITIZ[place]
[2024-07-24 12:04] LABS: Glucose - Point of Care 112 mg/dl (70-99)
[2024-07-24 15:45] VITALS: BP 132/70
--- NOTE | 2024-07-24 17:43 | PTCARENOTE ---
Patient discharged home with VN. This RN removed patient's IVs and telemetry pack, reviewed discharge instructions with patient who verbalized understanding. Wound care completed prior to DC, wound care supplies provided to patient. Patient DCed on
home O2, O2 tanks provided, patient advised to call O2 company upon discharge per CM as well as make follow up appointments with primary care provider and wound care clinic. Patient asking for prescription for pain medication prior to discharge; no
new pain medication per MD. Patient updated, instructed to follow up with primary care clinic outpatient. Patient being transported home by daughter, taken down to main lobby with O2 tanks via staff escort and wheelchair.
[2024-07-25 13:03] LABS: Albumin 3.27 g/dL (3.75-5.01); Alpha 1 Globulin 0.43 g/dL (0.19-0.46); Alpha 2 Globulin 0.94 g/dL (0.48-1.05); SPEP IFE Reflex IFE Done; Total Protein-Electrophoresis 7.6 g/dL (6.3-8.2)
[2024-07-27 07:13] LABS: IgA 846 mg/dL (68-408); IgG 1222 mg/dL (768-1632); IgM 140 mg/dL (35-263)
== END 2024-07-24 17:31 | disposition home health service (06) | DRG 872 ==
LOC: 2 NORTH 21:09
PROVIDERS: Hospitalist; Physician Assistant Medical; ADMITTING PHYSICIAN Internal Medicine; ATTENDING PHYSICIAN Internal Medicine; CONSULT PHYSICIAN Internal Medicine Critical Care Medicine; CONSULT PHYSICIAN Internal Medicine Infectious Disease; EMERGENCY PHYSICIAN Emergency Medicine
DX: A41.9 Sepsis, unspecified organism (principal); L03.115 Cellulitis of right lower limb; Z68.43 Body mass index [BMI] 50.0-59.9, adult; J81.1 Chronic pulmonary edema; E66.2 Morbid (severe) obesity with alveolar hypoventilation; E11.628 Type 2 diabetes mellitus with other skin complications; J45.909 Unspecified asthma, uncomplicated; I89.0 Lymphedema, not elsewhere classified; E66.813 Obesity, class 3; L30.9 Dermatitis, unspecified; R31.9 Hematuria, unspecified; D47.2 Monoclonal gammopathy; I27.20 Pulmonary hypertension, unspecified; I34.81 Nonrheumatic mitral (valve) annulus calcification; M47.814 Spondylosis without myelopathy or radiculopathy, thoracic region; R26.2 Difficulty in walking, not elsewhere classified; R06.89 Other abnormalities of breathing; R09.02 Hypoxemia; Z90.49 Acquired absence of other specified parts of digestive tract; Z87.891 Personal history of nicotine dependence; Z88.0 Allergy status to penicillin; Z88.7 Allergy status to serum and vaccine; Z88.8 Allergy status to other drugs, medicaments and biological substances; Z98.1 Arthrodesis status; Z86.14 Personal history of Methicillin resistant Staphylococcus aureus infection; Z63.6 Dependent relative needing care at home; Z22.322 Carrier or suspected carrier of Methicillin resistant Staphylococcus aureus; Z91.199 Patient's noncompliance with other medical treatment and regimen due to unspecified reason
CPT/HCPCS: 36600; 71046; 71275; 80048; 80053; 80202; 81003; 81015; 82570; 82784; 82805; 82962; 83036; 83516; 83605; 83880; 84155; 84156; 84165; 85025; 85027; 85652; 86038; 86140; 86160; 86200; 86334; 86430; 86480; 87040; 87070; 87147; 87340; 87389; 93306; 93922; 93925; 93971; 94640; 96365; 96366; 96367; 96375; 99285; Q9950; Q9967

== ENCOUNTER → 2024-07-30 13:01 | Outpatient (REF) | payer OTHER, SELFPAY | LOC: WOUND 13:01 | PROVIDERS: ATTENDING PHYSICIAN Surgery | DX: L97.222 Non-pressure chronic ulcer of left calf with fat layer exposed (principal); L97.322 Non-pressure chronic ulcer of left ankle with fat layer exposed; I87.2 Venous insufficiency (chronic) (peripheral); E66.01 Morbid (severe) obesity due to excess calories; I27.20 Pulmonary hypertension, unspecified | CPT/HCPCS: 11042; 11045; 99204 ==

== ENCOUNTER → 2024-08-06 13:29 | Outpatient (REF) | payer OTHER, SELFPAY | LOC: WOUND 13:29 | PROVIDERS: ATTENDING PHYSICIAN Surgery | DX: L97.212 Non-pressure chronic ulcer of right calf with fat layer exposed (principal); L97.312 Non-pressure chronic ulcer of right ankle with fat layer exposed; I87.2 Venous insufficiency (chronic) (peripheral); E66.01 Morbid (severe) obesity due to excess calories; I27.20 Pulmonary hypertension, unspecified | CPT/HCPCS: 29580 ==

== ENCOUNTER → 2024-08-13 14:07 | Outpatient (REF) | payer OTHER, SELFPAY | LOC: WOUND 14:07 | PROVIDERS: ATTENDING PHYSICIAN Surgery | DX: L97.312 Non-pressure chronic ulcer of right ankle with fat layer exposed (principal); L97.212 Non-pressure chronic ulcer of right calf with fat layer exposed; I87.2 Venous insufficiency (chronic) (peripheral); E66.01 Morbid (severe) obesity due to excess calories; I27.20 Pulmonary hypertension, unspecified | CPT/HCPCS: 11042; 11045 ==

== ENCOUNTER → 2024-08-20 14:02 | Outpatient (REF) | payer OTHER, SELFPAY | LOC: WOUND 14:02 | PROVIDERS: ATTENDING PHYSICIAN Surgery | DX: L97.312 Non-pressure chronic ulcer of right ankle with fat layer exposed (principal); L97.212 Non-pressure chronic ulcer of right calf with fat layer exposed; I87.2 Venous insufficiency (chronic) (peripheral); I27.20 Pulmonary hypertension, unspecified | CPT/HCPCS: 11042; 11045 ==

== ENCOUNTER → 2024-08-27 11:45 | Outpatient (REF) | payer OTHER, SELFPAY | LOC: WOUND 11:45 | PROVIDERS: ATTENDING PHYSICIAN Surgery; FAMILY PHYSICIAN Family Medicine | DX: L97.312 Non-pressure chronic ulcer of right ankle with fat layer exposed (principal); L97.212 Non-pressure chronic ulcer of right calf with fat layer exposed; I87.2 Venous insufficiency (chronic) (peripheral); E66.01 Morbid (severe) obesity due to excess calories; I27.20 Pulmonary hypertension, unspecified | CPT/HCPCS: 29581; 99213 ==

== ENCOUNTER → 2024-09-04 10:25 | Outpatient (REF) | payer OTHER, SELFPAY | LOC: WOUND 10:25 | PROVIDERS: ATTENDING PHYSICIAN Surgery | DX: L97.312 Non-pressure chronic ulcer of right ankle with fat layer exposed (principal); L97.212 Non-pressure chronic ulcer of right calf with fat layer exposed; I87.2 Venous insufficiency (chronic) (peripheral); E66.01 Morbid (severe) obesity due to excess calories; I27.20 Pulmonary hypertension, unspecified | CPT/HCPCS: 29581 ==

== ENCOUNTER → 2024-09-10 14:33 | Outpatient (REF) | payer OTHER, SELFPAY | LOC: WOUND 14:33 | PROVIDERS: ATTENDING PHYSICIAN Surgery | DX: L97.312 Non-pressure chronic ulcer of right ankle with fat layer exposed (principal); L97.212 Non-pressure chronic ulcer of right calf with fat layer exposed; I87.2 Venous insufficiency (chronic) (peripheral); E66.01 Morbid (severe) obesity due to excess calories; I27.20 Pulmonary hypertension, unspecified | CPT/HCPCS: 99212 ==